=== PATIENT | female | born 1935 | race Caucasian/White ===

== ENCOUNTER 2020-01-02 15:26 | Emergency (ER) | payer MEDICARE ==
[~2020-01-02] VITALS: Ht 157 cm; Wt 48.0 kg
[~2020-01-02 15:26] MED LIST: ASPI-587 PO; HYDR-3714 PO; LISI20TA PO; NFCHLORT25 PO; POTA2TAB15 PO; TRAM50TA2 PO; [UNRECOGNIZED DRUG - CODE] PO
[2020-01-02 15:54] LABS: HEMATOCRIT 33 % (35-52); HEMOGLOBIN 11.4 G/DL (11.5-16.0); MEAN CORPUSCULAR HEMOGLOBIN 33 PG (25-34); MEAN CORPUSCULAR HGB CONC 34 G/DL (32-36); MEAN CORPUSCULAR VOLUME 97 FL (80-99); MEAN PLATELET VOLUME 8.9 FL (7.4-10.4); PLATELET COUNT 209 10^3/uL (130-400); RED CELL DISTRIBUTION WIDTH 13.2 % (10.0-14.5); WHITE BLOOD COUNT 7.7 10^3/uL (4.3-11.0)
[2020-01-02 15:55] LABS: BASOPHILS % (AUTO) 1 % (0-10); EOSINOPHILS % (AUTO) 1 % (0-10); LYMPHOCYTES # (AUTO) 1.7 X 10^3 (1.0-4.0); LYMPHOCYTES % (AUTO) 21 % (12-44); MONOCYTES % (AUTO) 10 % (0-12); NEUTROPHILS # (AUTO) 5.2 X 10^3 (1.8-7.8); NEUTROPHILS % (AUTO) 67 % (42-75)
[2020-01-02 15:56] LABS: BASOPHILS # (AUTO) 0.1 10^3/uL (0.0-0.1); EOSINOPHILS # (AUTO) 0.1 10^3/uL (0.0-0.3); MONOCYTES # (AUTO) 0.8 X 10^3 (0.0-1.0)
[2020-01-02 16:03] VITALS: BP_SYST 110; BP_SYST 112; BP_SYST 114; BP_DIAS 68; BP_DIAS 70; BP_DIAS 72
--- NOTE | 2020-01-02 16:12 | ED General ---
General Chief Complaint: General Problems/Pain Stated Complaint: OFF BALANCE, NO APPETITE Nursing Triage Note: PT STATES SHE HAS NOT HAD MUCH ENERGY FOR THE PAST WEEK OR MORE AND FEELS A LITTLE OFF BALANCE. Nursing Sepsis Screen: No Definite Risk History of Present Illness Date Seen by Provider: January 02, 2020 Time Seen by Provider: 16:07 Initial Comments 84-year-old female complains mainly of fatigue for at least a week poor appetite poor balance she has been sort of running into things she did fall once but denies any particular injury from that episode does not have any focal neurologic deficits visual problems or speech problems denies ever having had a heart attack or stroke or anything similar is not diabetic no ca hx she is really not able to tell me about any significant medical history she has except HTN environmental allergies, and prior shingles Allergies and Home Medications Allergies Coded Allergies: Sulfa (Sulfonamide Antibiotics) (Unverified Allergy, Unknown, 01/03/15) Home Medications Aspirin 81 Mg Tablet.dr, 81 MG PO DAILY, (Reported) Chlorthalidone 25 Mg Tab, 25 MG PO DAILY, (Reported) Hydrocodone Bit/Acetaminophen 1 Tab Tablet, 1 TAB PO Q4H PRN for PAIN Prescribed by: JOE TOWNSEND on 01/03/152039 Lisinopril 20 Mg Tablet, 20 MG PO BID, (Reported) Potassium Gluconate 500 Mg Tablet, 595 MG PO BID, (Reported) Tramadol Hcl 50 Mg Tablet, 50 MG PO Q4H PRN for PAIN, (Reported) Patient Home Medication List Home Medication List Reviewed: Yes Review of Systems Review of Systems Constitutional: dizziness; No fever EENTM: No hearing loss, No blurred vision, No vision loss Respiratory: no symptoms reported; No short of breath Cardiovascular: no symptoms reported; No chest pain, No palpitations, No syncope Gastrointestinal: No abdominal pain, No diarrhea, No vomiting Genitourinary: no symptoms reported Musculoskeletal: no symptoms reported Skin: other (bruising hands and arms) Past Krfuqvq-Vrwxcg-Ulmoln Hx Patient Social History Alcohol Use: Denies Use Recreational Drug Use: No 2nd Hand Smoke Exposure: No Recent Foreign Travel: No Contact w/Someone Who Travel: No Recent Infectious Disease Expo: No Recent Hopitalizations: No Physical Abuse: No Sexual Abuse: No Mistreated: No Fear: No Seasonal Allergies Seasonal Allergies: No Past Medical History Surgeries: Yes Hysterectomy Respiratory: No Cardiac: Yes Hypertension Neurological: No Reproductive Disorders: No Genitourinary: No Gastrointestinal: No Musculoskeletal: No Endocrine: No HEENT: No Cancer: No Psychosocial: No Integumentary: Yes (CHICKEN POX A CHILD) Blood Disorders: No Family Medical History No Pertinent Family Hx Physical Exam Vital Signs Vital Signs - First Documented 01/02/20 15:40 Temp 36.6 Pulse 61 Resp 18 B/P (MAP) 114/66 (82) Pulse Ox 98 O2 Delivery Room Air Capillary Refill : Less Than 3 Seconds Height, Weight, BMI Height: 4'9" Weight: 110lbs. oz. 49.919861rg; 19.00 BMI Method:Stated General Appearance: No Apparent Distress Eyes: Bilateral Eye PERRL, Bilateral Eye EOMI HEENT: Pharynx Normal, Moist Mucous Membranes Neck: Supple Respiratory: Normal Breath Sounds Cardiovascular: Bradycardia, Systolic Murmur Gastrointestinal: Non Tender, Soft Extremity: Pedal Edema (1+ on right) Neurologic/Psychiatric: Alert, Oriented x3, No Motor/Sensory Deficits, Normal Mood/Affect, health and wellness director II-XII Norm as Tested Progress/Results/Core Measures Suspected Sepsis Recent Fever Within 48 Hours: No Infection Criteria Present: None New/Unexplained Altered Menta: No Sepsis Screen: No Definite Risk SIRS Temperature: Pulse: 65 Respiratory Rate: 18 Laboratory Tests 01/02/20 15:46: White Blood Count 7.7 Blood Pressure 110 /68 Mean: 82 Laboratory Tests 01/02/20 15:46: Creatinine 1.49H, Platelet Count 209, Total Bilirubin 0.4 Results/Orders Lab Results Laboratory Tests Test 01/02/20 15:46 01/02/20 15:51 Range/Units White Blood Count 7.7 4.3-11.0 10^3/uL Red Blood Count 3.41 L 4.35-5.85 10^6/uL Hemoglobin 11.4 L 11.5-16.0 G/DL Hematocrit 33 L 35-52 % Mean Corpuscular Volume 97 80-99 FL Mean Corpuscular Hemoglobin 33 25-34 PG Mean Corpuscular Hemoglobin Concent 34 32-36 G/DL Red Cell Distribution Width 13.2 10.0-14.5 % Platelet Count 209 130-400 10^3/uL Mean Platelet Volume 8.9 7.4-10.4 FL Neutrophils (%) (Auto) 67 42-75 % Lymphocytes (%) (Auto) 21 12-44 % Monocytes (%) (Auto) 10 0-12 % Eosinophils (%) (Auto) 1 0-10 % Basophils (%) (Auto) 1 0-10 % Neutrophils # (Auto) 5.2 1.8-7.8 X 10^3 Lymphocytes # (Auto) 1.7 1.0-4.0 X 10^3 Monocytes # (Auto) 0.8 0.0-1.0 X 10^3 Eosinophils # (Auto) 0.1 0.0-0.3 10^3/uL Basophils # (Auto) 0.1 0.0-0.1 10^3/uL Sodium Level 135 135-145 MMOL/L Potassium Level 3.7 3.6-5.0 MMOL/L Chloride Level 99 98-107 MMOL/L Carbon Dioxide Level 24 21-32 MMOL/L Anion Gap 12 5-14 MMOL/L Blood Urea Nitrogen 23 H 7-18 MG/DL Creatinine 1.49 H 0.60-1.30 MG/DL Estimat Glomerular Filtration Rate 33 BUN/Creatinine Ratio 15 Glucose Level 143 H 70-105 MG/DL Calcium Level 9.6 8.5-10.1 MG/DL Corrected Calcium 9.4 8.5-10.1 MG/DL Total Bilirubin 0.4 0.1-1.0 MG/DL Aspartate Amino Transf (AST/SGOT) 25 5-34 U/L Alanine Aminotransferase (ALT/SGPT) 16 0-55 U/L Alkaline Phosphatase 65 40-136 U/L Troponin I < 0.30 <0.30 NG/ML Total Protein 6.9 6.4-8.2 GM/DL Albumin 4.3 3.2-4.5 GM/DL Urine Color DK YELLOW Urine Clarity CLEAR Urine pH 5.0 5-9 Urine Specific [place] >=1.030 1.016-1.022 Urine Protein TRACE H NEGATIVE Urine Glucose (UA) NEGATIVE NEGATIVE Urine Ketones 1+ H NEGATIVE Urine Nitrite NEGATIVE NEGATIVE Urine Bilirubin 2+ H NEGATIVE Urine Urobilinogen 1.0 < = 1.0 MG/DL Urine Leukocyte Esterase NEGATIVE NEGATIVE Urine RBC (Auto) NEGATIVE NEGATIVE Urine RBC RARE /HPF Urine WBC 2-5 /HPF Urine Squamous Epithelial Cells 0-2 /HPF Urine Crystals NONE /LPF Urine Bacteria TRACE /HPF Urine Casts PRESENT /LPF Urine Hyaline Casts 2-5 H /LPF Urine Mucus NONE /LPF Urine Culture Indicated NO My Orders Orders - TINO SAGE MD Iv/Invasive Line Insertion .IV start (01/02/20 15:45) Cbc With Automated Diff (01/02/20 15:45) Comprehensive Metabolic Panel (01/02/20 15:45) Troponin I Fs (01/02/20 15:45) Urinalysis (01/02/20 15:45) Ekg Tracing (01/02/20 15:45) Dock Associate (01/02/20 15:45) Ct Head Wo (01/02/20 15:45) Orthostatic Vital Signs (Adult (01/02/20 15:45) Chest Pa/Lat (2 View) (01/02/20 16:16) Thyroid Stimulating Hormone (01/02/20 16:16) Vital Signs/I&O 01/02/20 01/02/20 15:40 16:03 Temp 36.6 Pulse 61 62 64 65 Resp 18 B/P (MAP) 114/66 (82) 112/72 (85) 114/70 (85) 110/68 (82) Pulse Ox 98 O2 Delivery Room Air Capillary Refill : Less Than 3 Seconds Blood Pressure Mean: 82 Progress Note : Progress Note Hemoglobin 11.4 white blood count 7700 urine is greater than 1.030 specific gravity and 1+ ketones CT head shows no acute changes some small vessel disease appreciated Chest x-ray shows mild cardiomegaly no CHF no acute changes orthostats negative ECG Initial ECG Impression Date: January 02, 2020 Comment EKG shows a sinus bradycardia at a rate of [address] changes manager cardiac cath has shown her rate to usually be in the mid 50s and it has been sinus throughout Does however dip into the 40s frequently does not seem to correlate with any symptoms on her part Departure Impression Primary Impression: Fatigue Qualified Codes: R53.83 - Other fatigue Additional Impression: Bradycardia Disposition: 01 HOME, SELF-CARE Condition: Unchanged Departure-Patient Inst. Decision time for Depature: 17:05 Referrals: MOUNA URENA (PCP/Family) Primary Care Physician Patient Instructions: Bradycardia (DC), Fatigue (DC) Add. Discharge Instructions: Recommend that you follow up with your primary provider about potentially wearing a heart monitor for a longer period of time to check on the slow heart rate otherwise your evaluation didn't show anything concerning also a thyroid blood test is pending TINO SAGE MD January 02, 2020 16:12
[2020-01-02 16:22] LABS: CLARITY,URINE CLEAR; COLOR,URINE DK YELLOW; GLUCOSE, URINE (UA) NEGATIVE (NEGATIVE); KETONES,URINE 1+ (NEGATIVE); NITRITE,URINE NEGATIVE (NEGATIVE); PROTEIN,URINE TRACE (NEGATIVE)
--- NOTE | 2020-01-02 16:22 | Diagnostic Imaging Report ---
INDICATION: Imbalance issues. TECHNIQUE: Routine non contrast-enhanced axial images were obtained from the skull base to the vertex. Auto Exposure Controls were utilized during the CT exam to meet ALARA standards for radiation dose reduction COMPARISON: None. FINDINGS: The ventricles and cortical sulci are diffusely prominent, compatible with age-related volume loss. There are confluent areas of abnormal, low attenuation in the periventricular white matter. This is consistent with small vessel ischemic changes; age-indeterminate. There is no prior study available for comparison. There is no midline shift or mass-effect. No acute intra-axial hemorrhage is seen. There are no abnormal areas of increased or decreased density to suggest acute hemorrhage or edema. No extra-axial masses or collections are present. The bony calvarium is intact. The visualized paranasal sinuses are unremarkable. The mastoid air cells are clear. IMPRESSION: 1. No acute intracranial abnormality. No CT evidence of mass, acute infarct or intracranial hemorrhage. 2. Small vessel ischemic changes in the periventricular and subcortical white matter; likely chronic. Dictated by: Dictated on workstation # [id number]
[2020-01-02 16:23] LABS: BACTERIA,URINE TRACE /HPF; BILIRUBIN,URINE 2+ (NEGATIVE); LEUKOCYTE ESTERASE ,URINE NEGATIVE (NEGATIVE); RBC,URINE RARE /HPF; SQUAMOUS EPITHELIAL CELL,UR 0-2 /HPF
--- NOTE | 2020-01-02 16:39 | Diagnostic Imaging Report ---
EXAMINATION: PA and lateral chest. INDICATION: Balance abnormalities. FINDINGS: There is enlargement of the cardiac silhouette. The central pulmonary vascularity appears appropriate without evidence of current failure or edema. There is no focal alveolar infiltrate or consolidation. There is no evidence of significant pleural effusion. There is no pneumothorax. Advanced degenerative endplate changes are present within the thoracic spine. IMPRESSION: 1. Enlarged cardiac silhouette without current evidence of failure or edema. No focal infiltrate or effusion evident. Dictated by: Dictated on workstation # [id number]
[2020-01-02 16:50] LABS: POTASSIUM 3.7 MMOL/L (3.6-5.0); SODIUM 135 MMOL/L (135-145)
[2020-01-02 16:51] LABS: ALANINE AMINOTRANSFERASE 16 U/L (0-55); ALKALINE PHOSPHATASE 65 U/L (40-136); BILIRUBIN,TOTAL 0.4 MG/DL (0.1-1.0); BUN/CREATININE RATIO 15; CALCIUM 9.6 MG/DL (8.5-10.1); CARBON DIOXIDE 24 MMOL/L (21-32); CHLORIDE 99 MMOL/L (98-107); CREATININE SERUM 1.49 MG/DL (0.60-1.30); GFR ESTIMATED 33; GLUCOSE 143 MG/DL (70-105)
[2020-01-02 16:52] LABS: ALBUMIN 4.3 GM/DL (3.2-4.5); TOTAL PROTEIN 6.9 GM/DL (6.4-8.2)
[2020-01-02 17:19] VITALS: BP 112/67
--- OUTSIDE RECORDS SUMMARY | 2020-01-02 17:23 | XMS REPORT | Clinical Summary ---
Author Author [facility] Organization [facility] Address Unknown Phone Unavailable Care Team Providers Care Tester Wafer Substrate Name Role Phone Xiomy Alarcon MD PCP Source Comments Some departments are not documenting in the electronic medical record. If you d o not see the information that you expected, contact Release of Information in formerly [facility] [employer] Information Management department at [phone] for further assistan ce in locating additional records.[facility] Allergies No Known Allergies Medications Not on file Active Problems Not on file Social History Date Tobacco Use Types Packs/Day Years Used Never Smoker Smokeless Tobacco: Never Used Drinks/Week oz/Week Comments Alcohol Use No Sex Assigned at Date Recorded Not on file Industry Job Start Date Occupation Not on file Not on file Not on file Travel End Travel History Travel Start No recent travel history available. Last Filed Vital Signs Reading Time Taken Comments Vital Sign 103/55 06/17/2017 11:16 AM CDT Blood Pressure - - Pulse 36.8 C (98.3 F) 06/17/2017 11:16 AM CDT Temperature - - Respiratory Rate 97% 06/17/2017 11:16 AM CDT Oxygen Saturation - - Inhaled Oxygen Concentration - - Weight - - Height - - Body Mass Index Plan of Treatment Health Maintenance Due Date Last Done Comments MEDICARE ANNUAL WELLNESS 1935 VISIT DTAP/TDAP VACCINES (1 - 01/04/1954 Tdap) PHYSICAL (COMPREHENSIVE) 01/04/1953 EXAM SHINGLES RECOMBINANT 01/04/1986 VACCINE (1 of 2) PNEUMONIA (PPSV23) 01/04/2001 VACCINE (1 of 1 - PPSV23) INFLUENZA VACCINE 05/31/2020 Results Not on filefrom Last 3 Months Insurance Type Payer Benefit Subscriber ID Effective Phone Address Plan / Dates Group Medicare MEDICARE MEDICARE xxxxxxxxxx 2000-P PART A AND resent B Medicare BCBS JULIA BCBS xxxxxxxxxxxx 2016-P SUPPLEMENT resent [id number] Advance Directives Patient Insurance Loss Assessor Explanation Type Date Recorded Advance 06/17/2017 10:46 AM Directive/DPOA
--- OUTSIDE RECORDS SUMMARY | 2020-01-02 17:23 | XMS REPORT ---
Author Author [place] [employer] medical case worker Drive [facility] [employer]. 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 [address] disease (2 to pollen of [facility] sources.) Translations: [place] ([address]73) [ Seasonal allergic rhinitis due to pollen, Seasonal allergic rhinitis due to pollen] 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 [address] and connective Translations: of [facility] tissue [ Autoimmune [place] (21157) disorders (2 disorder, sources.) Autoimmune disorder] Heart valve Cardiac Episodic Active MOUNA Community disorders (1 murmur, [address] source.) unspecified of [facility] Translations: [place] (13675) [ - Cardiac murmur R01.1] Chronic kidney Chronic kidney Chronic Active MOUNA Co mmunity disease (2 disease stage [address] sources.) 2 of [facility] Translations: [place] (12719) [ CKD (chronic kidney disease) stage 2, GFR 60-89 ml/min, CKD (chronic kidney disease) stage 2, GFR 60-89 ml/min] Residual Chronic pain Chronic Active MOUNA Community codes; Translations: [address] unclassified [ Other of [place] (1 source.) chronic pain] [place] (82898) Other diseases Disorder of Episodic Active MOUNA Commu nity of kidney and kidney and [address] ureters (2 ureter, of [place] sources.) unspecified [place] (16048) Translations: [ - Renal insufficiency N28.9] Genitourinary Dysuria Episodic Active MOUNA Community symptoms and Translations: [address] ill-defined [ - Dysuria of [facility] conditions (1 R30.0] [place] () source.) Essential Essential Chronic Active MOUNA Community hypertension (primary) [address] (5 sources.) hypertension of [place] Translations: [place] () [ - Hypertension I10, Essential hypertension, Essential hypertension, Hypertension, Hypertension, Essential hypertension] Other Increased Chronic Active MOUNA Community gastrointestin liver function [address] r al disorders Translations: of [facility] (2 sources.) [ LFT [place] () elevation, LFT elevation] Other nervous Other chronic Chronic Active MOUNA Comm unity system pain [address] disorders (1 Translations: of [facility] source.) [ - Other [place] () chronic pain G89.29] Other Other Episodic Active MOUNA Community screening for specified [address] suspected abnormal of [facility] conditions findings of [place] () (not mental blood disorders or chemistry infectious Translations: disease) (1 [ - Blood source.) creatinine increased compared with prior measurement R79.89] Immunizations Other Episodic Active [facility] and screening specified [address] for infectious abnormal of [facility] disease (3 immunological [place] () sources.) findings in serum Translations: [ - Positive ISAIAH (antinuclear antibody) R76.8, - Rheumatoid factor positive R76.8] Residual [facility] codes; specified [address] unclassified health status of [facility] (1 source.) Translations: [place] () [ - HBcAb negative Z78.9] Other Pain in right Episodic Active MOUNA Communit y non-traumatic knee [address] joint Translations: of [facility] disorders (1 [ - Pain in [place] () source.) right knee M25.561] Administrative Persons Episodic Active MOUNA Communit y /social encountering [address] admission (1 health of [facility] source.) services in [place] () other specified circumstances Translations: [ - Encounter to establish care Z76.89] Other upper Postnasal drip Episodic Active MOUNA Commu nity respiratory Translations: [address] infections (1 [ - Post-nasal of [facility] source.) drainage [place] () R09.82] Other diseases Renal no information Active MOUNA Com munity of kidney and insufficiency [address] ureters (2 Translations: of [facility] sources.) [ Renal [place] () insufficiency, Renal insufficiency] Urinary tract Urinary tract Episodic Active MOUNA Comm unity infections (1 infection, [address] source.) site not of [facility] specified [place] () Translations: [ - UTI (lower urinary tract infection) N39.0] Past or Other Problems Problem Normalized Date Last Normalized Normalized Provider Fa cility Classification Problem(s) Recorded Problem Problem Sta tus Duration Other skin Actinic Episodic Completed MOUNA Community disorders ([address] sources.) Translations: of [facility] [ AK (actinic [place] () keratosis), [place] (actinic keratosis)] Other Arthralgia of Episodic Completed MOUNA Communit y non-traumatic the lower leg [address] joint Translations: of [facility] disorders (2 [ Recurrent [place] () sources.) pain of right knee, Recurrent pain of right knee] Fracture of Closed Colles' Episodic Completed MOUNA Commu nity upper limb ([address] sources.) Translations: of [facility] [ Closed [place] () Colles fracture, Closed Colles fracture] Diabetes Impaired Episodic Completed MOUNA Community mellitus glucose [address] without tolerance test of [place] complication Translations: [place] () (2 sources.) [ Glucose intolerance (impaired glucose tolerance), Glucose intolerance (impaired glucose tolerance)] Other Joint pain Episodic Completed MOUNA Community non-traumatic Translations: [address] joint [ Arthralgia of [place] disorders (1 of multiple [place] (71949) source.) sites, bilateral] Other Multiple joint Episodic Completed MOUNA Communi ty non-traumatic pain [address] joint Translations: of [place] disorders (1 [ Arthralgia [place] (56728) source.) of multiple sites, bilateral] Other Personal Episodic Completed MOUNA Community infections; history of [address] including other of [facility] parasitic (2 infectious and [place] (54671) sources.) parasitic diseases Translations: [ History of shingles, History of shingles] Other skin Senile Episodic Completed [facility] disorders (2 [address] sources.) Translations: of [facility] [ SK [place] (02228) (seborrheic keratosis), SK (seborrheic keratosis)] Other 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 No Known procedures No Known procedures Immunizations Normalized Immunization Date Notes Care Provider Facili ty Immunization influenza, seasonal, 06-21-2019 no information no name [facility] injectable [facility] [place] ([id number]) pneumococcal 06-21-2019 no information no name [facility] polysaccharide [facility] vaccine, 23 valent - [place] ([id number]) Results Test Name Value Interpretation Reference Range Date Time Fa cility (Normalized) (Normalized) (Medline Reference) not yet categorized on 2019-06-21 A:C (IN HOUSE) 07/30/2019~clear (no code) [facility] Hea lth ~yellow~[address] [facility] mg/L~300mg/dL~<3 [facility] 0mg/g (71019) Lot # [id number] (no code) [facility] Healt h [facility] (22462) laboratory on 2019-06-21 Albumin 4.4 g/dL (N) 3.4 - 5.4 g/dL [facility] [Mass/Vol] [facility] (77926) Albumin 4.4 g/dL (N) 3.4 - 5.4 g/dL [facility] [Mass/Vol] [facility] (75267) Albumin/Globulin 1.8 {ratio} (N) 1 - 2.5 {ratio} [facility] [Mass ratio] [facility] (44725) Albumin/Globulin 1.8 {ratio} (N) 1 - 2.5 {ratio} Comm [facility] [Mass ratio] [facility] (66974) ALP [Catalytic 71 U/L (N) 44 - 147 U/L [facility] activity/Vol] [facility] (95705) ALP [Catalytic 71 U/L (N) 44 - 147 U/L [facility] Health activity/Vol] [facility] (49956) ALT [Catalytic 13 U/L (N) 4 - 40 U/L Community H ealth activity/Vol] [facility] (45517) ALT [Catalytic 13 U/L (N) 4 - 40 U/L Community H ealth activity/Vol] [facility] (12645) AST [Catalytic 22 U/L (N) 10 - 34 U/L [facility] Health activity/Vol] [facility] (25050) AST [Catalytic 22 U/L (N) 10 - 34 U/L [facility] Health activity/Vol] [facility] () Basophils (Bld) 0.059 10*3/uL (N) 0 - 0.3 10*3/uL [facility] [#/Vol] [facility] (70544) Basophils (Bld) 0.059 10*3/uL (N) 0 - 0.3 10*3/uL [facility] [#/Vol] [facility] (89379) Basophils/100 1.0 % (N) 0.5 - 1 % Community He alth WBC (Bld) [facility] (26133) Basophils/100 1.0 % (N) 0.5 - 1 % Community He alth WBC (Bld) [facility] (52440) Bilirubin 0.5 mg/dL (N) 0.1 - 1.2 mg/dL [facility] [Mass/Vol] [facility] (30495) Bilirubin 0.5 mg/dL (N) 0.1 - 1.2 mg/dL [facility] [Mass/Vol] [facility] (82783) Calcidiol 0 ng/mL (no code) 20 - 50 ng/mL [facility] H ealth [Mass/Vol] [facility] (40414) Calcidiol 57 ng/mL (N) 20 - 50 ng/mL [facility] ealt [Mass/Vol] [facility] (31213) Calcium 9.6 mg/dL (N) 8.5 - 10.2 mg/dL [facility] [Mass/Vol] [facility] (73053) Calcium 9.6 mg/dL (N) 8.5 - 10.2 mg/dL [facility] [Mass/Vol] [facility] (54254) Chloride 103 mmol/L (N) 95 - 106 mmol/L [facility] [Moles/Vol] [facility] (48471) Chloride 103 mmol/L (N) 95 - 106 mmol/L [facility] [Moles/Vol] [facility] (58647) CO2 [Moles/Vol] 25 mmol/L (N) 23 - 29 mmol/L [facility] (46879) CO2 [Moles/Vol] 25 mmol/L (N) 23 - 29 mmol/L [facility] (15123) Creatinine 1.10 mg/dL (H) [facility] [Mass[facility]] [facility] (16292) Creatinine 1.10 mg/dL (H) [facility] [Mass/Vol] [facility] (05196) Eosinophils 0.112 10*3/uL (N) 0.05 - 0.5 Community He alth (Bld) [#/Vol] 10*3/uL [facility] (49442) Eosinophils 0.112 10*3/uL (N) 0.05 - 0.5 Community He alth (Bld) [#/Vol] 10*3/uL [facility] (70696) Eosinophils/100 1.9 % (N) 1 - 4 % [facility] Health WBC (Bld) [facility] (42741) Eosinophils/100 1.9 % (N) 1 - 4 % [facility] WBC (Bld) [facility] (26465) Erythrocyte 12.1 % (N) 11.6 - 14.6 % [facility] H ealth distribution [facility] (RBC) [facility] [Ratio] (96875) Erythrocyte 12.1 % (N) 11.6 - 14.6 % [facility] width (RBC) [facility] [Ratio] (15414) Free T4 1.2 ng/dL (N) 0.9 - 2.2 ng/dL [facility] [Mass/Vol] [facility] (94078) GFR/1.73 sq M 54 (L) 90 - 120 Community He alth predicted among mL/min/{1.73_m2} mL/min/{1.73_m2} [facility] [place] MDRD [facility] (S/P/Bld) [Vol (92894) rate/Area] GFR/1.73 sq M 54 (L) 90 - 120 Community He alth predicted among mL/min/{1.73_m2} mL/min/{1.73_m2} [facility] [place] MDRD [facility] (S/P/Bld) [Vol (41295) rate/Area] GFR/1.73 sq 46 (L) 90 - 120 Community Heal th M.predicted MDRD mL/min/{1.73_m2} mL/min/{1.73_m2} [facility] (S/P/Bld) [Vol [facility] rate/Area] (29980) GFR/1.73 sq 46 (L) 90 - 120 [facility] th M.predicted MDRD mL/min/{1.73_m2} mL/min/{1.73_m2} [facility] (S/P/Bld) [Vol [facility] rate/Area] (73372) Globulin (S) 2.5 g/dL (N) 2 - 3.5 g/dL Community H ealt [Mass/Vol] [facility] (71361) Globulin (S) 2.5 g/dL (N) 2 - 3.5 g/dL [facility] ealt [Mass/Vol] [facility] (96103) Glucose 96 mg/dL (N) 60 - 125 mg/dL [facility] [Mass/Vol] [facility] (14396) Glucose 96 mg/dL (N) 60 - 125 mg/dL [facility] [Mass/Vol] [facility] (59576) HbA1c (Bld) 5.7 (H) [facility] [Mass fraction] [facility] (64417) HbA1c (Bld) 5.7 (H) [facility] h [Mass fraction] [facility] (54742) Hematocrit (Bld) 35.9 % (N) 36.1 - 50.3 % [facility] [Volume [facility]] [facility] (63629) Hematocrit (Bld) 35.9 % (N) 36.1 - 50.3 % [facility] [Volume Center of [facility] (46727) Hemoglobin (Bld) 12.2 g/dL (N) 12.1 - 17.2 g/dL [facility] [Mass/Vol] [facility] (36382) Hemoglobin (Bld) 12.2 g/dL (N) 12.1 - 17.2 g/dL [facility] [Mass/Vol] [facility] (92092) Lymphocytes 1.906 10*3/uL (N) 0.9 - 2.9 [facility] He alth (Bld) [#/Vol] 10*3/uL [facility] (28781) Lymphocytes 1.906 10*3/uL (N) 0.9 - 2.9 [facility] He alth (Bld) [#/Vol] 10*3/uL [facility] (44192) Lymphocytes/100 32.3 % (N) 20 - 40 % [facility] WBC (Bld) [facility] (84731) Lymphocytes/100 32.3 % (N) 20 - 40 % [facility] WBC (Bld) [facility] (75300) MCH (RBC) 33.3 pg (H) 27 - 31 pg [facility] th [Entitic mass] [facility] (20932) MCH (RBC) 33.3 pg (H) 27 - 31 pg [facility] th [Entitic mass] [facility] (80642) MCHC (RBC) 34.0 g/dL (N) 32 - 36 g/dL Community He alth [Mass/Vol] [facility] (61825) MCHC (RBC) 34.0 g/dL (N) 32 - 36 g/dL [facility] He alth [Mass/Vol] [facility] (66370) MCV (RBC) 98.1 fL (N) 80 - 100 fL [facility] Hea lt [Entitic vol] [facility] (88566) MCV (RBC) 98.1 fL (N) 80 - 100 fL [facility] Hea lth [Entitic vol] [facility] (24342) Monocytes (Bld) 0.531 10*3/uL (N) 0.3 - 0.9 Communit y Health [#/Vol] 10*3/uL [facility] (80991) Monocytes (Bld) 0.531 10*3/uL (N) 0.3 - 0.9 Communit Health [#/Vol] 10*3/uL [facility] (45517) Monocytes/100 9.0 % (N) 2 - 8 % [facility] He alth WBC (Bld) [facility] (29530) Monocytes/100 9.0 % (N) 2 - 8 % [facility] alth WBC (Bld) [facility] (22384) Neutrophils 3.292 10*3/uL (N) 1.7 - 7 10*3/uL [facility] Health (Bld) [#/Vol] [facility] (85305) Neutrophils 3.292 10*3/uL (N) 1.7 - 7 10*3/uL [facility] Health (Bld) [#/Vol] [facility] (91245) Neutrophils/100 55.8 % (N) 40 - 60 % [facility] Health WBC (Bld) [facility] (63489) Neutrophils/100 55.8 % (N) 40 - 60 % [facility] WBC (Bld) [facility] (75998) Platelet mean 9.2 fL (N) 7.2 - 11.7 fL [facility] Health volume (Bld) [facility] [Entitic vol] [facility] (57668) Platelet mean 9.2 fL (N) 7.2 - 11.7 fL [facility] volume (Bld) [facility] [Entitic vol] [facility] (75630) Platelets (Bld) 273 10*3/uL (N) 150 - 450 [facility] [#/Vol] 10*3/uL [facility] (99312) Platelets (Bld) 273 10*3/uL (N) 150 - 450 [facility] [#/Vol] 10*3/uL [facility] (52935) Potassium 3.8 mmol/L (N) 3.7 - 5.2 mmol/L [facility] [Moles/Vol] [facility] (92619) Potassium 3.8 mmol/L (N) 3.7 - 5.2 mmol/L [facility] [Moles/Vol] [facility] (42222) Protein 6.9 g/dL (N) 6.4 - 8.3 g/dL [facility] [Mass/Vol] [facility] (04420) Protein 6.9 g/dL (N) 6.4 - 8.3 g/dL [facility] [Mass/Vol] [facility] (28871) RBC (Bld) 3.66 10*6/uL (L) 4.2 - 6.1 [facility] Hea lth [#/Vol] 10*6/uL [facility] (72158) RBC (Bld) 3.66 10*6/uL (L) 4.2 - 6.1 [facility] Hea lth [#/Vol] 10*6/uL [facility] (49696) Sodium 139 mmol/L (N) 135 - 145 mmol/L [facility] [Moles/Vol] [facility] (33308) Sodium 139 mmol/L (N) 135 - 145 mmol/L [facility] [Moles/Vol] [facility] (30592) TSH Qn 1.85 m[IU]/L (N) 0.4 - 4 m[IU]/L [facility] (79745) Urea nitrogen 15 mg/dL (N) 7 - 20 mg/dL [facility] [Mass/Vol] [facility] (74692) Urea nitrogen 15 mg/dL (N) 7 - 20 mg/dL [facility] [Mass/Vol] [facility] (55359) Urea 14 mg/mg (N) 6 - 22 mg/mg Community He alth nitrogen/Creatin [facility] [Mass ratio] [facility] (93371) Urea 14 mg/mg (N) 6 - 22 mg/mg Community [facility] alth nitrogen/Creatin [facility] [Mass ratio] [facility] () WBC (Bld) 5.9 10*3/uL (N) 3.5 - 10.5 Community Heal th [#/Vol] 10*3/uL [facility] (00017) WBC (Bld) 5.9 10*3/uL (N) 3.5 - 10.5 [facility] [#/Vol] 10*3/uL [facility] () not yet categorized on 2019-03-05 BLO Moderate (no code) Community Healt h [facility] () KET 05/2019~slightly (no code) [facility] cloudy~dark [facility] yellow~yes~negat [facility] kev~negative~Tra (03423) ce OLIVER Negative (no code) [facility] () Lot # [id number] (no code) [facility] (80620) SG 1.020 (no code) [facility] () URO 0.2 (no code) [facility] Healt [facility] () laboratory on 2019-03-05 Bacteria SEE NOTE (no code) [facility] identified Cx [facility] Nom (U) [facility] () pH (Bld) 6.5 [pH] (no code) 7.38 - 7.42 [pH] Communit [facility] () Protein (U) 100 mg/dL (no code) 0 - 20 mg/dL Community He alth [Mass/Vol] [facility] () other on 2018-12-14 Albumin/Globulin 1.9 (N) Community [facility] lth [Mass ratio] [facility] (88898) Cholesterol in 133 (H) [facility] LDL [Mass/Vol] [facility] (31939) Cholesterol non 148 (H) [facility] HDL [Mass/Vol] [facility] (05506) Cholesterol.tota 2.7 (N) [facility] lt l/Cholesterol in [facility] HDL [Mass ratio] [facility] (15150) Erythrocyte 12.4 % (N) 11.6 - 14.6 % Community ealth distribution [facility] width (RBC) [facility] [Ratio] (80577) GFR/1.73 sq 42 (L) 90 - 120 [facility] M.predicted MDRD mL/min/{1.73_m2} mL/min/{1.73_m2} [facility] (S/P/Bld) [Vol [facility] rate/Area] (51495) Globulin (S) 2.2 (N) [facility] h [Mass/Vol] [facility] (16068) MCHC (RBC) 34.0 g/dL (N) 32 - 36 g/dL [facility] [Mass/Vol] [facility] (76019) Platelet mean 9.4 fL (N) 7.2 - 11.7 fL [facility] volume (Bld) [facility] [Entitic vol] [facility] (14177) metabolic panel on 2018-12-14 Albumin 4.2 g/dL (N) 3.4 - 5.4 g/dL [facility] [Mass/Vol] [facility] (08684) ALP [Catalytic 80 U/L (N) 44 - 147 U/L [facility] activity/Vol] [facility] (47072) ALT [Catalytic 13 U/L (N) 4 - 40 U/L [facility] ealt activity/Vol] [facility] (13098) AST [Catalytic 22 U/L (N) 10 - 34 U/L [facility] activity/Vol] [facility] (48479) Bilirubin 0.7 mg/dL (N) 0.1 - 1.2 mg/dL [facility] [Mass/Vol] [facility] (52860) Calcium 9.3 mg/dL (N) 8.5 - 10.2 mg/dL [facility] [Mass/Vol] [facility] (97303) Chloride 108 mmol/L (N) 95 - 106 mmol/L [facility] [Moles/Vol] [facility] (56864) CO2 [Moles/Vol] 26 mmol/L (N) 23 - 29 mmol/L [facility] (04807) Creatinine 1.20 mg/dL (H) [facility] Healt h [Mass/Vol] [facility] (40280) GFR/1.73 sq M 49 (L) 90 - 120 Community He alth predicted among mL/min/{1.73_m2} mL/min/{1.73_m2} [facility] [place] [facility] MDRD [facility] (S/P/Bld) [Vol (27117) rate/Area] Glucose 112 mg/dL (H) 60 - 125 mg/dL [facility] [Mass/Vol] [facility] (14167) Potassium 3.9 mmol/L (N) 3.7 - 5.2 mmol/L [facility] [Moles/Vol] [facility] (18116) Protein 6.4 g/dL (N) 6.4 - 8.3 g/dL [facility] [Mass/Vol] [facility] (91509) Sodium 142 mmol/L (N) 135 - 145 mmol/L [facility] [Moles/Vol] [facility] (50246) Urea nitrogen 18 mg/dL (N) 7 - 20 mg/dL [facility] [Mass/Vol] [facility] (35314) Urea 15 mg/mg (N) 6 - 22 mg/mg Community He alth nitrogen/Creatin [facility] [Mass ratio] [facility] (62972) hematology on 2018-12-14 Basophils (Bld) 0.059 10*3/uL (N) 0 - 0.3 10*3/uL [facility] Health [#/Vol] [facility] (32891) Basophils/100 1.1 % (N) 0.5 - 1 % Community He alth WBC (Bld) [facility] (64706) Eosinophils 0.162 10*3/uL (N) 0.05 - 0.5 [facility] He alth (Bld) [#/Vol] 10*3/uL [facility] (75075) Eosinophils/100 3.0 % (N) 1 - 4 % [facility] WBC (Bld) [facility] (01634) Hematocrit (Bld) 34.7 % (L) 36.1 - 50.3 % [facility] (32429) Hemoglobin (Bld) 11.8 g/dL (N) 12.1 - 17.2 g/dL [facility] [Mass/Vol] [facility] (35080) Lymphocytes 2.03 10*3/uL (N) 0.9 - 2.9 [facility] [#/Vol] 10*3/uL [facility] ([id number]) Lymphocytes/100 37.6 % (N) 20 - 40 % [facility] WBC (Bld) [facility] (64887) MCH (RBC) 33.0 pg (N) 27 - 31 pg [facility] Heal th [Entitic mass] [facility] (32995) MCV (RBC) 96.9 fL (N) 80 - 100 fL [facility] [Entitic vol] [facility] (22383) Monocytes (Bld) 0.443 10*3/uL (N) 0.3 - 0.9 [facility] Health [#/Vol] 10*3/uL [facility] (32853) Monocytes/100 8.2 % (N) 2 - 8 % [facility] WBC (Bld) [facility] (18932) Neutrophils 2.705 10*3/uL (N) 1.7 - 7 10*3/uL [facility] Health (Bld) [#/Vol] [facility] (73176) Neutrophils/100 50.1 % (N) 40 - 60 % [facility] WBC (Bld) [facility] (85538) Platelets (Bld) 258 10*3/uL (N) 150 - 450 [facility] [#/Vol] 10*3/uL [facility] (76758) RBC (Bld) 3.58 10*6/uL (L) 4.2 - 6.1 [facility]th [#/Vol] 10*6/uL [facility] (36521) WBC (Bld) 5.4 10*3/uL (N) 3.5 - 10.5 [facility] th [#/Vol] 10*3/uL [facility] (95430) cardiac on 2018-12-14 Cholesterol 237 mg/dL (H) 180 - 200 mg/dL [facility] [Mass/Vol] [facility] (82965) Cholesterol in 89 mg/dL (N) [facility] h HDL [Mass/Vol] [facility] (48150) Triglyceride 59 mg/dL (N) 0 - 150 mg/dL [facility] [Mass/Vol] [facility] (43514) Vital Signs The data below is from unstructured sources Vital Response Date/Time Temperature (Fahrenheit) 97.7 degree s F (97.6 - 99.5) Temperature (Calculated Celsius) 36. 75225 degrees C (36.4 - 37.5) Pulse Rate (adult) 51 bpm (60 - 90) Respiratory Rate 20 bpm (12 - 24) O2 Sat by Pulse Oximetry 97 % (88 - 100) Blood Pressure 159/79 mm Hg Pain Pain Intensity 4 Height (Feet) 4 feet Height (Inches) 9 inches Height (Calculated Centimeters) 144. 342951 cm Weight (Pounds) 110 pounds Weight (Calculated Kilograms) 49.895 161 kilograms Calculated BMI 23.80 Interventions No Information Plan of Treatment Normalized Care Care Detail Care Activity Date Care Provider F acility Activity [facility] 06-21-[address] [facility] [address] [facility] ([id number]) Goals No Information Social History No Information Functional Status The data below is from unstructured sourcesNo functional status results. Mental Status No Information Encounters Encounter Normalized Encounter Encounter Diagnosis Care Provi mariam Organization Date Type 03-05-2019 [facility] Urinary tract TRANG SORENSON (no [facility] infection, site not phone) IN CARE (n o phone) specified 08-17-2018 [facility] no information Doctor Migrati on ([facility] phone) (no phone) 08-14-2018 [facility] no information Doctor Migrati on (no [facility] phone) (no phone) 07-15-2018 [facility] no information Doctor Migrati on (no [facility] phone) (no phone) 07-10-2018 [facility] no information Doctor Migrati on (no [facility] phone) (no phone) 07-08-2018 [facility] no information Doctor Migrati on (no [facility] phone) (no phone) 06-14-2018 [facility] no information Doctor Migrati on (no [facility] phone) (no phone) 06-10-2018 [facility] no information Doctor Migrati on (no [facility] phone) (no phone) 12-15-2015 [facility] no information Doctor Migrati on (no [facility] phone) (no phone) 03-21-2019 [facility] Fifteen Reasons no information MOUNA URENA (n o [facility] [place] (no phone) phone) 12-20-2018 [facility] ANA PAULA Essential (primary) MOUNA JAMES RN (no [facility] [place] (no hypertension phone) phone) 09-27-2018 [facility] Persons encountering MOUNA RAO (no [facility] [place] (no health services in phone) phone) other specified circumstances 12-14-2018 Consultation for Essential (primary) MOUNA XIE N (no [facility] laboratory medicine hypertension phone) (no phone) 08-05-2019 Patient encounter no information no name no or ganization name procedure 06-21-2019 Patient encounter no information no name no or ganization name procedure 03-21-2019 Patient encounter no information no name no or ganization name procedure 03-05-2019 Patient encounter no information no name no or ganization name procedure 12-20-2018 Patient encounter no information no name no or ganization name procedure 12-14-2018 Patient encounter no information no name no or ganization name procedure 11-24-2018 Patient encounter no information no name no or ganization name procedure 09-27-2018 Patient encounter no information no name no or ganization name procedure 04-07-2019 Telephone encounter no information MOUNA ROMEL (no [facility] [place] (no phone) phone) 03-30-2019 Telephone encounter no information MOUNA ROMEL (no [facility] [place] (no phone) phone) 11-20-2018 Telephone encounter no information MOUNA ROMEL (no [facility] [place] (no phone) phone) 10-05-2018 Telephone encounter no information MOUNA ROMEL (no [facility] [place] (no phone) phone) 10-04-2018 Telephone encounter no information MOUNA ROMEL (no [facility] [place] (no phone) phone) 09-14-2018 Telephone encounter no information MOUNA ROMEL (no [facility] [place] (no phone) phone) 08-29-2018 Telephone encounter no information Doctor Migration (no [facility] phone) (no phone) Medical Equipment No Information Payers No Information Advance Directives Directive Response Recor ded Date/Time Advance Directives No 7:35pm Resuscitation Status Full Code 01/03/15 7:35pm Discharge Instructions No hospital discharge instructions. Additional Source Comments This clinical document has been generated using [employer] software that has been certified by the Office of the National Coordinator for Health Information Technology (ONC 15.99.04.3023.Diam.31.00.0.228569) and the National Committee for Executive Relations Specialist (NCQA, as an eMeasure certified technology). FOR RECORDS PERTAINING TO PATIENTS WHO ARE OR HAVE BEEN ENROLLED IN A CHEMICAL D EPENDENCY/SUBSTANCE ABUSE PROGRAM, SOME INFORMATION MAY BE OMITTED. This clinica l summary was aggregated from multiple sources. Caution should be exercised in using it in the provision of clinical care. This summary normalizes information from multiple sources, and as a consequence, information in this document may ma terially change the coding, format and clinical context of patient data. In ibeth tion, data may be omitted in some cases. CLINICAL DECISIONS SHOULD BE BASED ON T HE PRIMARY CLINICAL RECORDS. [employer] provides no warranty or guara ntee of the accuracy or completeness of information in this document.The followi ng information is based on time limited clinical information UNRECOGNIZED CONTENT PROVIDED BELOW FOR UNRECOGNIZED SECTION REASON FOR VISIT medication refill UNRECOGNIZED CONTENT PROVIDED BELOW FOR UNRECOGNIZED SECTION MEDICAL (GENERAL) HISTORY Type Description Date Medical History Glucose Intolerance Medical History Squamous Cell Carcinoma Medical History Hypertension Medical History Renal Insufficiency Medical History Hx Shingles Medical History LFT Elevation Medical History Chronic Kidney DIsease Medical History Autoimmune Disorder Surgical History hysterectomy Hospitalization History hysterectomy
--- OUTSIDE RECORDS SUMMARY | 2020-01-02 17:24 | XMS REPORT | Continuity of Care Document ---
Author Organization Unknown Address Unknown Phone Unavailable Allergies Active Description Code Type Severity Reaction Onset Reported/Identified Relationship to Patient Clinical Status Yes Sulfa (Sulfonamide Antibiotics) [id number] Drug Allergy Unknown N/A 015 Medications There is no data. Problems Date Dx Coded Attending Type Code Diagnosis Diagnosed By 01/03/2015 JOE SANCHEZ Ot 053.9 01/03/2015 JOE SANCHEZ Ot 789.00 Procedures There is no data. Results Test Result Range LIPID PANEL - 12/14/18 08:15 CHOLESTEROL, TOTAL 237 mg/dL <200 HDL CHOLESTEROL 89 mg/dL >50 TRIGLYCERIDES 59 mg/dL <150 LDL-CHOLESTEROL 133 mg/dL (calc) NRG CHOL/HDLC RATIO 2.7 (calc) <5.0 NON HDL CHOLESTEROL 148 mg/dL (calc) <13 0 CMP - 12/14/18 08:15 GLUCOSE 112 mg/dL 65-99 UREA NITROGEN (BUN) 18 mg/dL 7-25 CREATININE 1.20 mg/dL 0.60-0.88 eGFR NON-AFR. LAO 42 mL/min/1.73m2 > OR = 60 eGFR 49 mL/min/1.73m2 > OR = 60 BUN/CREATININE RATIO 15 (calc) 6-22 SODIUM 142 mmol/L 135-146 POTASSIUM 3.9 mmol/L 3.5-5.3 CHLORIDE 108 mmol/L 98-110 CARBON DIOXIDE 26 mmol/L 20-32 CALCIUM 9.3 mg/dL 8.6-10.4 PROTEIN, TOTAL 6.4 g/dL 6.1-8.1 ALBUMIN 4.2 g/dL 3.6-5.1 GLOBULIN 2.2 g/dL (calc) 1.9-3.7 ALBUMIN/GLOBULIN RATIO 1.9 (calc) 1.0-2. 5 BILIRUBIN, TOTAL 0.7 mg/dL 0.2-1.2 ALKALINE PHOSPHATASE 80 U/L 33-130 AST 22 U/L 10-35 ALT 13 U/L 6-29 CBC - 04/16/19 08:15 WHITE BLOOD CELL COUNT 5.4 Thousand/uL 3 .8-10.8 RED BLOOD CELL COUNT 3.58 Million/uL 3.8 0-5.10 HEMOGLOBIN 11.8 g/dL 11.7-15.5 HEMATOCRIT 34.7 % 35.0-45.0 MCV 96.9 fL 80.0-100.0 MCH 33.0 pg 27.0-33.0 MCHC 34.0 g/dL 32.0-36.0 RDW 12.4 % 11.0-15.0 PLATELET COUNT 258 Thousand/uL 140-400 MPV 9.4 fL 7.5-12.5 ABSOLUTE NEUTROPHILS 2705 cells/uL 1500- 7800 ABSOLUTE LYMPHOCYTES 2030 cells/uL 850-3 900 ABSOLUTE MONOCYTES 443 cells/uL 200-950 ABSOLUTE EOSINOPHILS 162 cells/uL 15-500 ABSOLUTE BASOPHILS 59 cells/uL 0-200 NEUTROPHILS 50.1 % NRG LYMPHOCYTES 37.6 % NRG MONOCYTES 8.2 % NRG EOSINOPHILS 3.0 % NRG BASOPHILS 1.1 % NRG CULTURE, URINE - 03/05/19 19:00 CULTURE, URINE, ROUTINE SEE NOTE NRG VITAMIN D, 25-H - 06/21/19 08:44 VITAMIN D,25-OH,TOTAL,IA 57 ng/mL 30-10 0 Encounters ACCT No. Visit Date/Time Discharge Status Pt. Type Provider Facility Loc./Unit Complaint [id number] 12/20/2019 08:20:00 12/20/2019 23:59: 59 [facility] [id number] 06/21/2019 08:00:00 Document Registration [id number] 03/05/2019 16:50:00 Document Registration [id number] 12/14/2018 08:15:00 Document Registration [id number] 01/02/2020 15:28:00 020 17:22:00 DIS Emergency TINO SAGE MD [facility] FS OFF BALANCE, NO APPETIT E [id number] 01/03/2015 19:07:00 015 21:35:00 DIS Emergency JOE SANCHEZ [facility]
--- OUTSIDE RECORDS SUMMARY | 2020-01-02 17:24 | XMS REPORT ---
Author Author Conchita URENA Organization [facility] Address [address] [place] [address] Care Team Providers Care Solder Cream Maker Name Role Phone MOUNA URENA Unavailable PROBLEMS Type Condition ICD9-CM Code GOP01-BK Code Onset Dates Condition S tatus SNOMED Code Problem AK (actinic keratosis) 702.0 15 May, 2018 0 [id number] Problem Renal insufficiency 593.9 19 May, 2017 0 022693075 Problem Essential hypertension 401.9 13 Jan, 2015 0 82902260 Problem Autoimmune disorder D89.89 14 Jul, 2018 0 77059440 Problem Glucose intolerance (impaired glucose tolerance) 790.22 20 Jul, 2010 0 034774639 Problem History of shingles V12.09 21 Oct, 2017 0 [id number] Problem Arthralgia of multiple sites, bilateral 719.49 07 Jul, 2018 0 77425927 Problem Seasonal allergic rhinitis due to pollen J30.1 May, 0 53735533 Problem LFT elevation 790.6 14 Jul, 2018 0 672 41596 Problem Seasonal allergic rhinitis due to pollen 477.0 19 May, 2017 0 15338575 Problem Autoimmune disorder 279.49 14 Jul, 2018 0 81964571 Problem SK (seborrheic keratosis) 702.19 15 May, 2018 0 956796563 Problem Closed Colles fracture S52.539A December, 0 016958152 Problem Closed Colles fracture 813.41 December, 0 522415572 Problem PHN (postherpetic neuralgia) B02.29 Jan, 201 5 0 3695430 Problem CKD (chronic kidney disease) stage 2, GFR 60-89 ml/min 585.2 14 Jul, 2018 0 835973013 Problem Recurrent pain of right knee M25.561 Oct, 201 8 0 507722696 Problem Squamous cell carcinoma C44.92 03 Jan, 2015 0 42888676 Problem LFT elevation R94.5 14 Jul, 2018 0 672 46051 Problem Arthralgia of multiple sites, bilateral M25.50 07 Jul, 2018 0 58255771 Problem AK (actinic keratosis) L57.0 15 May, 2018 0 340614438 Problem CKD (chronic kidney disease) stage 2, GFR 60-89 ml/min N18.2 14 Jul, 2018 0 692233326 Problem History of shingles Z86.19 Oct, 0 [id number] Problem Hypertension I10 Active 0905462 3 Problem Squamous cell carcinoma 173.92 03 Jan, 2015 0 49143952 Problem Other chronic pain G89.29 Active 8 8885824 Problem Recurrent pain of right knee 719.46 Oct, 8 0 180427644 Problem PHN (postherpetic neuralgia) 053.19 Jan, 201 5 0 851834879 Problem SK (seborrheic keratosis) L82.1 15 May, 2018 0 620006768 Problem Glucose intolerance (impaired glucose tolerance) R73.02 Jul, 0 685210737 Problem Essential hypertension I10 13 Jan, 2015 0 53916977 Problem Renal insufficiency N28.9 May, 0 821847061 ALLERGIES No Information ENCOUNTERS Encounter Location Date Diagnosis [address] [address] May, [address] [address] Mar, [address] [address] Feb, [address] [address] Feb, [facility] [address] [place] [address] Feb, UTI (lower urinary tract infection) N39. 0 and Dysuria R30.[address] [address] Nov, Hypertension I10 ; Renal insufficiency N28.9 ; Other chronic pain G89.29 ; Pain in right knee M25.561 and Rheumatoid factor positive R76.[address] [address] Nov, Hypertension I10 and Renal insufficiency N28.9 [facility] ANA PAULA [id number] [place] [address] Oct, [facility] [address] [place] [address] Oct, [facility] [address] [place] [address] Oct, [facility] ANA PAULA[address] [address] Aug, Encounter to establish care Z76.89 ; HBcAb negative Z78.9 ; Blood creatinine increased compared with prior measurement R79.89 ; Positive ISAIAH (antinuclear antibody) R76.8 ; Rheumatoid factor positive R76.8 ; Post-nasal drainage R09.82 and Cardiac murmur R01.1 [facility] [place] [address] Aug, [facility] [address] [id number] [address] [place] [address] Jul, [facility] [address] [id number] [address] [place] [phone] Jul, [facility] [address] [id number] [address] [place] [phone] Jul, [facility] [address] [id number] [address] [place] [phone] Jul, [facility] [address] [id number] [address] [place] [phone] Jul, [facility] [address] [id number] [address] [place] [phone] Jul, [facility] [address] [id number] [address] [place] [phone] May, [facility] [address] [id number] [address] [place] [phone] May, [facility] [address] [facility]NOTE 3[facility] [id number] [address] [place] [phone] Nov, IMMUNIZATIONS No Known Immunizations SOCIAL HISTORY Never Assessed REASON FOR VISIT medication refill PLAN OF CARE VITAL SIGNS MEDICATIONS Medication Instructions Dosage Frequency Start Date End Date Duration S adal Lisinopril 20 MG Orally Once a day 1 tablet 24h Aug, 90 days Active Chlorthalidone 25 MG Orally Once a day 1 tablet in the morning with food 24h Aug, 90 days Active RESULTS No Results PROCEDURES No Known procedures INSTRUCTIONS MEDICATIONS ADMINISTERED No Known Medications MEDICAL (GENERAL) HISTORY Type Description Date Medical History Glucose Intolerance Medical History Squamous Cell Carcinoma Medical History Hypertension Medical History Renal Insufficiency Medical History Hx Shingles Medical History LFT Elevation Medical History Chronic Kidney DIsease Medical History Autoimmune Disorder Surgical History hysterectomy Hospitalization History hysterectomy
== END 2020-01-02 17:22 | disposition home or self-care (01) ==
LOC: EDUNIT# 15:26 → ER FS 15:28
DX: R53.83 Other fatigue (principal); R00.1 Bradycardia, unspecified; I10 Essential (primary) hypertension; Z88.2 Allergy status to sulfonamides; Z79.82 Long term (current) use of aspirin
CPT/HCPCS: 36415; 70450; 71046; 80053; 81000; 84443; 84484; 85025; 93005

== ENCOUNTER 2020-01-03 07:42 | Emergency (ER) | payer MEDICARE ==
[~2020-01-03] VITALS: Ht 157 cm; Wt 48.0 kg
--- NOTE | 2020-01-03 08:08 | ED General ---
General Chief Complaint: General Problems/Pain Stated Complaint: WEAKNESS,SHAKY Source of Information: Patient Exam Limitations: No Limitations History of Present Illness Date Seen by Provider: January 03, 2020 Time Seen by Provider: 08:04 Initial Comments Presents w c/o of not feeling well and couldn't sleep last night. States had an episode yesterday where she sat in her chair and felt real "shaky". Denies CP, SOA, difficulty speaking or walking. Also states sometimes she gets confused. Lives w her daughter who brought her to ER today. Also seen in this ER yesterday for evaluation. Allergies and Home Medications Allergies Coded Allergies: Sulfa (Sulfonamide Antibiotics) (Unverified Allergy, Unknown, 01/03/15) Home Medications Aspirin 81 Mg Tablet.dr, 81 MG PO DAILY, (Reported) Chlorthalidone 25 Mg Tab, 25 MG PO DAILY, (Reported) Hydrocodone Bit/Acetaminophen 1 Tab Tablet, 1 TAB PO Q4H PRN for PAIN Prescribed by: JOE TOWNSEND on 01/03/152039 Lisinopril 20 Mg Tablet, 20 MG PO BID, (Reported) Potassium Gluconate 500 Mg Tablet, 595 MG PO BID, (Reported) Tramadol Hcl 50 Mg Tablet, 50 MG PO Q4H PRN for PAIN, (Reported) Patient Home Medication List Home Medication List Reviewed: Yes Review of Systems Review of Systems Constitutional: see HPI; No chills, No diaphoresis, No dizziness, No fever; malaise, weakness EENTM: no symptoms reported Respiratory: No cough, No short of breath Cardiovascular: No chest pain, No edema, No palpitations, No syncope Gastrointestinal: No abdominal pain; loss of appetite; No nausea, No vomiting Genitourinary: No dysuria, No frequency Musculoskeletal: No back pain, No joint pain Skin: No lesions, No lumps, No rash Psychiatric/Neurological: Denies Headache, Denies Numbness, Denies Paresthesia, Denies Seizure, Denies Tingling; Tremors, Weakness Past Jadntog-Xuwprk-Qepopg Hx Past Med/Social Hx: Reviewed Nursing Past Med/Soc Hx Patient Social History 2nd Hand Smoke Exposure: No Recent Foreign Travel: No Contact w/Someone Who Travel: No Recent Hopitalizations: No Seasonal Allergies Seasonal Allergies: No Past Medical History Surgeries: Yes Hysterectomy Respiratory: No Cardiac: Yes Hypertension Neurological: No Reproductive Disorders: No Genitourinary: No Gastrointestinal: No Musculoskeletal: No Endocrine: No HEENT: No Cancer: No Psychosocial: No Integumentary: Yes (CHICKEN POX A CHILD) Blood Disorders: No Family Medical History No Pertinent Family Hx Physical Exam Vital Signs Vital Signs - First Documented 01/03/20 08:00 Temp 36.6 Pulse 59 Resp 16 B/P (MAP) 129/56 (80) Pulse Ox 96 Capillary Refill : Height, Weight, BMI Height: 4'9" Weight: 110lbs. oz. 49.529087lu; 19.00 BMI Method:Stated General Appearance: No Apparent Distress, WD/WN HEENT: TMs Normal, Normal ENT Inspection Neck: Full Range of Motion, Normal Inspection, Non Tender, Supple, Carotid Bruit Respiratory: Chest Non Tender, Lungs Clear, Normal Breath Sounds, No Accessory Muscle Use, No Respiratory Distress Cardiovascular: Regular Rate, Rhythm, No Edema, No Gallop, No JVD, No Murmur, Normal Peripheral Pulses Gastrointestinal: Normal Bowel Sounds, No Organomegaly, No Pulsatile Mass, Non Tender, Soft Back: Normal Inspection, No Vertebral Tenderness Extremity: Normal Capillary Refill, Normal Inspection, Normal Range of Motion Neurologic/Psychiatric: Alert, Oriented x3, No Motor/Sensory Deficits, Normal 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/Affect, 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 Norm as Tested Skin: Normal Color, Warm/Dry Progress/Results/Core Measures Suspected Sepsis SIRS Temperature: Pulse: Respiratory Rate: Laboratory Tests 01/03/20 08:06: White Blood Count 5.7 Blood Pressure / Mean: Laboratory Tests 01/03/20 08:06: Creatinine 1.13, Platelet Count 192, Total Bilirubin 0.6 Results/Orders Lab Results Laboratory Tests Test 01/03/20 08:06 Range/Units White Blood Count 5.7 4.3-11.0 10^3/uL Red Blood Count 3.35 L 4.35-5.85 10^6/uL Hemoglobin 11.3 L 11.5-16.0 G/DL Hematocrit 32 L 35-52 % Mean Corpuscular Volume 96 80-99 FL Mean Corpuscular Hemoglobin 34 25-34 PG Mean Corpuscular Hemoglobin Concent 35 32-36 G/DL Red Cell Distribution Width 13.0 10.0-14.5 % Platelet Count 192 130-400 10^3/uL Mean Platelet Volume 8.7 7.4-10.4 FL Neutrophils (%) (Auto) 67 42-75 % Lymphocytes (%) (Auto) 22 12-44 % Monocytes (%) (Auto) 10 0-12 % Eosinophils (%) (Auto) 1 0-10 % Basophils (%) (Auto) 1 0-10 % Neutrophils # (Auto) 3.8 1.8-7.8 X 10^3 Lymphocytes # (Auto) 1.2 1.0-4.0 X 10^3 Monocytes # (Auto) 0.5 0.0-1.0 X 10^3 Eosinophils # (Auto) 0.1 0.0-0.3 10^3/uL Basophils # (Auto) 0.0 0.0-0.1 10^3/uL Sodium Level 135 135-145 MMOL/L Potassium Level 3.6 3.6-5.0 MMOL/L Chloride Level 97 L 98-107 MMOL/L Carbon Dioxide Level 22 21-32 MMOL/L Anion Gap 16 H 5-14 MMOL/L Blood Urea Nitrogen 18 7-18 MG/DL Creatinine 1.13 0.60-1.30 MG/DL Estimat Glomerular Filtration Rate 46 BUN/Creatinine Ratio 16 Glucose Level 120 H 70-105 MG/DL Calcium Level 9.4 8.5-10.1 MG/DL Corrected Calcium 9.4 8.5-10.1 MG/DL Total Bilirubin 0.6 0.1-1.0 MG/DL Aspartate Amino Transf (AST/SGOT) 23 5-34 U/L Alanine Aminotransferase (ALT/SGPT) 13 0-55 U/L Alkaline Phosphatase 62 40-136 U/L Troponin I < 0.30 <0.30 NG/ML Total Protein 6.4 6.4-8.2 GM/DL Albumin 4.0 3.2-4.5 GM/DL My Orders Orders - ROVENSTINE,CIERRA L DO Ed Iv/Invasive Line Start (01/03/20 08:02) Cbc With Automated Diff (01/03/20 08:02) Comprehensive Metabolic Panel (01/03/20 08:02) Troponin I Fs (01/03/20 08:02) Vital Signs/I&O 01/03/20 09:45 Temp 36.4 Pulse 56 Resp 16 B/P (MAP) 135/56 Pulse Ox 97 Capillary Refill : ECG Initial ECG Rhythm: Normal Sinus Initial ECG Intervals: Normal Departure Impression Primary Impression: Weakness Additional Impressions: Insomnia Qualified Codes: G47.00 - Insomnia, unspecified Dementia Qualified Codes: F03.90 - Unspecified dementia without behavioral disturbance Disposition: 01 HOME, SELF-CARE Condition: Stable Departure-Patient Inst. Referrals: [facility] (PCP/Family) Primary Care Physician Patient Instructions: Generalized Weakness (DC), Insomnia (DC), Dementia (Including Alzheimer Disease) Add. Discharge Instructions: Make an appointment to see your Primary Doctor in 1 to 2 days for further evaluation. All discharge instructions reviewed with patient and/or family. Voiced understanding. CIERRA RAMOS DO January 03, 2020 08:08
[2020-01-03 08:18] LABS: HEMATOCRIT 32 % (35-52); HEMOGLOBIN 11.3 G/DL (11.5-16.0); MEAN CORPUSCULAR HEMOGLOBIN 34 PG (25-34); MEAN CORPUSCULAR HGB CONC 35 G/DL (32-36); MEAN CORPUSCULAR VOLUME 96 FL (80-99); MEAN PLATELET VOLUME 8.7 FL (7.4-10.4); PLATELET COUNT 192 10^3/uL (130-400); WHITE BLOOD COUNT 5.7 10^3/uL (4.3-11.0)
[2020-01-03 08:19] LABS: BASOPHILS % (AUTO) 1 % (0-10); EOSINOPHILS # (AUTO) 0.1 10^3/uL (0.0-0.3); EOSINOPHILS % (AUTO) 1 % (0-10); LYMPHOCYTES # (AUTO) 1.2 X 10^3 (1.0-4.0); LYMPHOCYTES % (AUTO) 22 % (12-44); MONOCYTES # (AUTO) 0.5 X 10^3 (0.0-1.0); MONOCYTES % (AUTO) 10 % (0-12); NEUTROPHILS # (AUTO) 3.8 X 10^3 (1.8-7.8); NEUTROPHILS % (AUTO) 67 % (42-75)
[2020-01-03 08:34] LABS: CHLORIDE 97 MMOL/L (98-107); POTASSIUM 3.6 MMOL/L (3.6-5.0); SODIUM 135 MMOL/L (135-145)
[2020-01-03 08:35] LABS: ALANINE AMINOTRANSFERASE 13 U/L (0-55); ALKALINE PHOSPHATASE 62 U/L (40-136); BILIRUBIN,TOTAL 0.6 MG/DL (0.1-1.0); BUN/CREATININE RATIO 16; CALCIUM 9.4 MG/DL (8.5-10.1); CARBON DIOXIDE 22 MMOL/L (21-32); CREATININE SERUM 1.13 MG/DL (0.60-1.30); GFR ESTIMATED 46; GLUCOSE 120 MG/DL (70-105); TOTAL PROTEIN 6.4 GM/DL (6.4-8.2)
--- NOTE | 2020-01-03 08:44 | NUR ---
After talking with patient, doctor and I felt that she might have some depression and anxiety. I asked her if she was depressed or upset from being cooped up from COVID and she stated that her daughter will not allow her to go anywhere. I told her if she needs to talk to anyone that she can talk to me. She stated that she might as well be by herself. She stated she woke her up this morning and told him she did not have a good night and he told her he didn't have a good night either. Dr. Jimenez and I believed that the patient needs to talk to someone. I made an appointment at 1000 at [facility] with Jose Romano. I called and spoke to the daughter about what was going on. She understood the appointment, but was asking about the bradycardia from yesterday and her needing a follow-up. I explained that we did all labs, CT, xrays, EKGs that we could and that she needs to follow-up with her PCP about why she is tired, confused at times, and the bradycardia. I made an appointment for 1500 today with Flor Beal to follow-up. Today she has been 54-68 bpm. Daughter understood and thanked us for everything. I told her I would take her over to [facility] for her 1000 appt and give them her number so they can call when she is about done. Daughter is going to go home until then. I also told her that I would call and give the nurse a heads up on what has been going on.
--- NOTE | 2020-01-03 09:24 | NUR ---
Spoke with [facility] nurse and informed her of the situation with the patient and why she was needing to be seen.
--- NOTE | 2020-01-03 09:34 | NUR ---
Keeping patient in ER until her appointment with Jose Romano at 1000.
[2020-01-03 09:45] VITALS: BP 135/56
== END 2020-01-03 09:45 | disposition home or self-care (01) ==
LOC: EDUNIT# 07:42 → ER FS 07:44
DX: R53.1 Weakness (principal); G47.00 Insomnia, unspecified; F03.90 Unspecified dementia, unspecified severity, without behavioral disturbance, psychotic disturbance, mood disturbance, and anxiety; I10 Essential (primary) hypertension; Z88.2 Allergy status to sulfonamides; Z79.82 Long term (current) use of aspirin
CPT/HCPCS: 36415; 80053; 84484; 85025

== ENCOUNTER 2020-01-05 11:39 | Outpatient (RCR) | payer MEDICARE ==
[2020-02-29] MEDS ORDERED: LISI-552 PO (11:40)
[2020-02-29] MEDS ORDERED: OMEG1CAP58 PO (11:40)
[2020-02-29] MEDS ORDERED: CHOL500049 PO (11:40)
[2020-02-29] MEDS ORDERED: ACET-2650 PO (11:40)
[2020-02-29] MEDS ORDERED: MAGN250T13 PO (11:40)
[2020-02-29] MEDS ORDERED: AMLO2.5T4 PO (11:40)
[2020-02-29] MEDS ORDERED: AMIT25TA9 PO (11:40)
[2020-03-01] MEDS ORDERED: CLOP75TA28 PO (06:58)
[2020-03-01] MEDS ORDERED: PANT40SU PO (06:58)
[2020-03-01] MEDS ORDERED: ATOR10TA PO (08:38)
== END 2020-04-04 | disposition still patient (30) ==
LOC: CARD 11:39
PROVIDERS: ATTEND Physician Assistant
DX: I12.9 Hypertensive chronic kidney disease with stage 1 through stage 4 chronic kidney disease, or unspecified chronic kidney disease (principal); N18.9 Chronic kidney disease, unspecified; I49.1 Atrial premature depolarization; I49.3 Ventricular premature depolarization
CPT/HCPCS: 93225; 93226

== ENCOUNTER → 2020-02-16 | Outpatient (CLI) | payer MEDICARE | LOC: CARD 13:25 | PROVIDERS: ATTEND Internal Medicine Cardiovascular Disease | DX: I08.3 Combined rheumatic disorders of mitral, aortic and tricuspid valves (principal); I12.9 Hypertensive chronic kidney disease with stage 1 through stage 4 chronic kidney disease, or unspecified chronic kidney disease; N18.9 Chronic kidney disease, unspecified | CPT/HCPCS: 93306 ==

== ENCOUNTER → 2020-02-22 | Outpatient (CLI) | payer MEDICARE ==
[~2020-02-22] VITALS: Ht 149 cm; Wt 47.0 kg
[~2020-02-22] MED LIST changes: +CATHETER FLUSH 10 ML SYR IV PRN; +REGADENOSON 0.4 MG/5 ML SYR (LEXISCAN) IV ONE
[2020-02-22 14:21] VITALS: BP 218/97
--- NOTE | 2020-02-22 14:21 | Cardiology Stress Test Report ---
Stress Test Report Date of Procedure/Referring: Date of Procedure: Feb 22, 2020 PCP Fady Rodríguez MD Admitting Physician Center/[facility] Indications: Hypertension, bradycardia Baseline Heart Rate: 65 Baseline Blood Pressure: Blood Pressure Systolic: 218 Blood Pressure Diastolic: 97 Baseline EKG: Baseline EKG: Normal sinus rhythm Summary/Conclusion Patient received 0.4 mg Lexiscan for stress test, ECG, heart rate and blood pressure were monitored continuously. Resting and stress dose of radio tracer were injected, imaging was acquired and reviewed in short axis, horizontal long axis and vertical long axis views. TID 0.94 SSS 5 SDS 5 EF 67% Conclusion 1. Patient tolerated Lexiscan well. 2. Severe hypertension persisted throughout test 3. Normal sinus rhythm with no EKG changes noted during test 4. Breast attenuation with mild ischemia involving the mid to apical anterior wall 5. Normal left ventricular size and contractility, EF 67 percent FADY RODRÍGUEZ MD Feb 22, 2020 14:20
== END ==
LOC: CARD 08:17
PROVIDERS: ATTEND Internal Medicine Cardiovascular Disease
DX: I12.9 Hypertensive chronic kidney disease with stage 1 through stage 4 chronic kidney disease, or unspecified chronic kidney disease (principal); R00.1 Bradycardia, unspecified; N18.9 Chronic kidney disease, unspecified
CPT/HCPCS: 78452; 93017; A9502

== ENCOUNTER → 2020-02-27 | Outpatient (CLI) | payer MEDICARE ==
[~2020-02-27] MED LIST changes: +ACET-2650 PO; +AMIT25TA9 PO; +AMLO2.5T4 PO; +ATOR10TA PO; -CATHETER FLUSH 10 ML SYR IV PRN; +CHOL500049 PO; +CLOP75TA28 PO; +LISI-552 PO; +MAGN250T13 PO; +OMEG1CAP58 PO; +PANT40SU PO; -REGADENOSON 0.4 MG/5 ML SYR (LEXISCAN) IV ONE
== END ==
LOC: LABNPT 06:41
PROVIDERS: ATTEND Internal Medicine Cardiovascular Disease
DX: Z01.818 Encounter for other preprocedural examination (principal); Z20.828 Contact with and (suspected) exposure to other viral communicable diseases
CPT/HCPCS: 87635

== ENCOUNTER 2020-02-29 10:39 | Day surgery (SDC) | payer MEDICARE ==
[~2020-02-29] VITALS: Ht 149.8 cm; Wt 45.0 kg
[~2020-02-29 10:39] MED LIST changes: -ACET-2650 PO; -AMIT25TA9 PO; -AMLO2.5T4 PO; -ATOR10TA PO; -CHOL500049 PO; -CLOP75TA28 PO; -LISI-552 PO; -MAGN250T13 PO; -OMEG1CAP58 PO; -PANT40SU PO
[2020-02-29] MEDS ORDERED: NS IV 1000 ML 1,000 ML ONE (10:50)
[2020-02-29] MEDS ORDERED: HEParin (CATH LAB) 2,000 ML IV ONE (10:50)
[2020-02-29] MEDS ORDERED: LIDOCAINE 1% INJ 20 ML 20 ML VIAL ONE (10:50)
[2020-02-29] MEDS ORDERED: NS IV 1000 ML 1,000 ML IV SCH ×2 (11:00→11:50)
[2020-02-29 11:18] LABS: HEMOGLOBIN 10.5 G/DL (11.5-16.0); MEAN PLATELET VOLUME 8.3 FL (7.4-10.4); RED CELL DISTRIBUTION WIDTH 13.7 % (10.0-14.5); WHITE BLOOD COUNT 5.4 10^3/uL (4.3-11.0)
[2020-02-29 11:20] VITALS: BP 192/84
[2020-02-29] MEDS ORDERED: LISI-552 PO (11:40)
[2020-02-29] MEDS ORDERED: ACET-2650 PO (11:40)
[2020-02-29] MEDS ORDERED: CHOL500049 PO (11:40)
[2020-02-29] MEDS ORDERED: MAGN250T13 PO (11:40)
[2020-02-29] MEDS ORDERED: AMLO2.5T4 PO (11:40)
[2020-02-29] MEDS ORDERED: OMEG1CAP58 PO (11:40)
[2020-02-29] MEDS ORDERED: AMIT25TA9 PO (11:40)
[2020-02-29 11:43] LABS: ALANINE AMINOTRANSFERASE 9 U/L (0-55); ALBUMIN 3.9 GM/DL (3.2-4.5); ALKALINE PHOSPHATASE 62 U/L (40-136); BILIRUBIN,TOTAL 0.5 MG/DL (0.1-1.0); BUN/CREATININE RATIO 13; CALCIUM 9.1 MG/DL (8.5-10.1); CARBON DIOXIDE 23 MMOL/L (21-32); CHLORIDE 110 MMOL/L (98-107); CHOLESTEROL 231 MG/DL (< 200); CREATININE SERUM 0.88 MG/DL (0.60-1.30); GFR ESTIMATED > 60; GLUCOSE 96 MG/DL (70-105); HDL CHOLESTEROL 72 MG/DL (40-60); POTASSIUM 3.7 MMOL/L (3.6-5.0); SODIUM 142 MMOL/L (135-145); TOTAL PROTEIN 6.5 GM/DL (6.4-8.2); TRIGLYCERIDES 70 MG/DL (<150); VLDL CHOLESTEROL 14 MG/DL (5-40)
--- NOTE | 2020-02-29 11:46 | Diagnostic Imaging Report ---
INDICATION: Preop for heart catheterization. TIME OF EXAM: 11:31 AM. COMPARISON: 01/02/2020. FINDINGS: The heart size is normal. The pulmonary vascularity is unremarkable. The lungs are clear. No infiltrate, effusion, or pneumothorax is detected. IMPRESSION: No acute cardiopulmonary process is detected. Dictated by: Dictated on workstation # [id number]
--- NOTE | 2020-02-29 11:50 | Cardiac Procedure Note-CS/ASA ---
Pre-Procedure Note Pre-Op Procedure Note H&P Reviewed The H&P was reviewed, patient examined and no changes noted. Date H&P Reviewed: Feb 29, 2020 Time H&P Reviewed: 11:49 Conscious Sedation Pre-Proced Time 11:49 ASA Score 3 For ASA 3 and 4: Consider anesthesia and medical clearance. Also, for patients with a history of failed moderate sedation consider anesthesia. Airway Lungs Heart ASA score ASA 1: a normal healthy patient ASA 2: a patient with a mild systemic disease (mid diabetes, controlled hypertension, obesity x ASA 3: a patient with a severe systemic disease that limits activity (angina, COPD, prior Myocardial infarction) ASA 4: a patient with an incapacitating disease that is a constant threat to life (CHF, renal failure) ASA 5: a moribund patient not expected to survive 24 hrs. (ruptured aneurysm) ASA 6: a declared brain- patient whose organs are being harvested. For emergent operations, add the letter E after the classification Mallampati Classification Grade 3 Sedation Plan Analgesia, Amnesia, Plan communicated to team members, Discussed options with patient/fam, Discussed risks with patient/fam The patient is an appropriate candidate to undergo the planned procedure, sedation, and anesthesia. The patient immediately re-assessed prior to indication. FADY AARON MD Feb 29, 2020 11:50
[2020-02-29] MEDS ORDERED: PATIENT MAY USE OWN MEDS, ALL PO SCH ×2 (12:00→14:00)
[2020-02-29] MEDS ORDERED: MIDAZOLAM 5 MG/5 ML (VERSED) VIAL ONE (12:13)
[2020-02-29] MEDS ORDERED: HEParin 1000 UNIT/ML (10ML VIAL) FOR BOLUS ONE (12:14)
[2020-02-29] MEDS ORDERED: NITRO DRIP 25000 MCG/D5W 250 ML IV ONE (12:14)
[2020-02-29] MEDS ORDERED: fentaNYL INJECTION 100 MCG/2 ML AMP ONE (12:14)
[2020-02-29] MEDS ORDERED: VERAPAMIL 5 MG/2 ML (CALAN) VIAL IV ONE (12:14)
[2020-02-29 12:37] LABS: PROTHROMBIN TIME PATIENT 13.6 SEC (12.2-14.7)
[2020-02-29] MEDS ORDERED: meTOprolol 5 MG/5 ML (LOPRESSOR) VIAL ONE (13:07)
[2020-02-29] MEDS ORDERED: ADENOSINE 3 MG/1 ML (ADENOSCAN) 30ML VIAL IV ONE (13:26)
[2020-02-29] MEDS ORDERED: CLOPIDOGREL 300 MG (PLAVIX) TABLET PO ONE (13:59)
[2020-02-29] MEDS ORDERED: ASPIRIN 325 MG (5 GR) TABLET ONE (13:59)
[2020-02-29] MEDS ORDERED: NON-FORMULARY MEDICATION 1 EA EA (Acetaminophen (Tylenol Arthritis) 650 MG) PO PRN (14:00)
[2020-02-29] MEDS ORDERED: cloNIDine 0.1 MG (CATAPRES) TAB PO NR (14:15)
--- NOTE | 2020-02-29 14:15 | Cardiac Cath Report ---
Cardiac Cath Report Physician (s)/Wafer Fabrication Operator (s) Physician FADY AARON MD Pre-Procedure Diagnosis Pre-Procedure Diagnosis: Coronary artery disease Post-Procedure Note Procedure Start Date: Feb 29, 2020 Name of Procedure: Left heart catheterization FFR to LAD Stent to LAD FFR to RCA Findings/Procedure Note PROCEDURE NOTE: 85-year-old lady with history of hypertension, hyperlipidemia, has been having chest pain, had an abnormal stress test scheduled for cardiac catheterization possible PTCA. After explaining the procedure to the patient, all pros and cons were explained, all questions were answered. The patient signed the consent and then she was placed on the cardiac catheterization laboratory. Groin was prepped SL fashion local anesthesia was used. Sheath placed in the right femoral artery. Anita right and left catheter were used to access the coronary system. Pigtail was used to access the left ventricular cavity. Left ventriculogram was not done Patient was given 5000 units of heparin, I tried multiple different guides, was able to intubate the left system with the FL 4.0, pressure wire was advanced and baseline pressure gradient was 0.87. Patient was started on adenosine drip and FFR was down to 0.79, drip was stopped, I proceeded with balloon angioplasty using emerge 2.5 x 20 then deployed Theresa 2.25 x 18 mm under 14 ernestina expanded to 2.5 mm in the mid LAD with excellent results. Patient had questionable lesion in the right coronary artery appeared to be 50- 60 percent stenosis. I used an FR guide advanced to the right coronary artery and FFR at baseline was 1.0 after 2 minutes of adenosine FFR was 0.9. At the end of the procedure the sheath was removed. Closure device was used FINDINGS: Hemodynamics LV 134/14, end-diastolic pressure 14 Aorta 149/62 mean of 94 ANATOMY: Left Main is free of obstructive disease Left Anterior Descending is tortuous with significant stenosis in the midportion 70-80 percent significant 70-80 percent stenosis at the midportion, FFR after challenge was 0.79, successful angioplasty and deployment of Xience Theresa 2.25 x 18 mm stent in the mid LAD expanded to 2.5 mm with excellent results Left Circumflex is moderate in size with no obstructive disease, mild disease in the midportion Right Coronory Artery is dominant artery moderate in size with 50-60 percent so that the midportion, FFR was 1.0, after challenge was 0.86 LV Gram was not done, pressure was measured CONCLUSION: 1. 70-80 percent stenosis in the mid LAD, FFR was done then deployment of Xience Theresa 2.25 x 18 mm expanded to 2.5 mm with excellent results. 2. 50-60 percent stenosis in the mid RCA FFR 0.86 after adenosine challenge 3. Multiple moderate disease in the mid circumflex artery, nonobstructive disea se 4. Severe hypertension noted during procedure requiring IV Lopressor 5. Normal left ventricular end-diastolic pressure DISCUSSION AND RECOMMENDATION: Patient was started on aspirin and Plavix. Continue current medications Anesthesia Type: Conscious Sedation Estimated blood loss (mL): 30 ml Contrast Amount: 135 ml Total Radiation Dose: 407 mGy Post-Procedure Diagnosis Post-operative diagnosis: Chest pain Coronary artery disease Hypertension Hyperlipidemia FADY AARON MD Feb 29, 2020 14:14
[2020-02-29 15:00] VITALS: BP 169/77
[2020-02-29 16:00] VITALS: BP 155/81
[2020-02-29] MEDS ORDERED: ACETAMINOPHEN 325 MG TABLET PO PRN (16:30)
[2020-02-29 17:00] VITALS: BP 143/95
[2020-02-29 18:00] VITALS: BP 132/81
[2020-02-29] MEDS ORDERED: ACETAMINOPHEN 650 MG PO PRN (18:15)
[2020-02-29] MEDS: NS IV 1000 ML 1,000 ML IV SCH (19:00)
[2020-02-29 20:00] VITALS: BP 134/90
[2020-03-01] VITALS: BP 168/73
[2020-03-01] MEDS: NS IV 1000 ML 1,000 ML IV SCH ×2 (00:24→00:25)
[2020-03-01 04:00] VITALS: BP 163/64
[2020-03-01 05:47] LABS: MEAN PLATELET VOLUME 8.3 FL (7.4-10.4); RED CELL DISTRIBUTION WIDTH 13.6 % (10.0-14.5); WHITE BLOOD COUNT 6.2 10^3/uL (4.3-11.0)
[2020-03-01 06:08] LABS: BUN/CREATININE RATIO 15; CALCIUM 8.5 MG/DL (8.5-10.1); CARBON DIOXIDE 21 MMOL/L (21-32); CHLORIDE 111 MMOL/L (98-107); CREATININE SERUM 0.88 MG/DL (0.60-1.30); GFR ESTIMATED > 60; GLUCOSE 87 MG/DL (70-105); POTASSIUM 3.7 MMOL/L (3.6-5.0); SODIUM 141 MMOL/L (135-145)
[2020-03-01] MEDS ORDERED: PANT40SU PO (06:58)
[2020-03-01] MEDS ORDERED: CLOP75TA28 PO (06:58)
--- NOTE | 2020-03-01 06:58 | Discharge Inst-Post CATH ---
Discharge Inst-CATH/EP Problems Reviewed?: Yes Post Cardiac Cath/EP D/C Inst Follow Up/Plan Appointment with Dr Rodríguez in 2-4 weeks <b>CARDIAC CATH/EP PROCEDURE DISCHARGE INSTRUCTIONS</b> ACTIVITY * Go Home directly and rest. * Limit activity of the leg (or wrist if it was used) for 7 days including aerobics, swimming, jogging, bicycling, etc. * Restrict stair-climbing for 7 days if possible, if not, climb up with your non-cath leg, then bring together on the same step. * Avoid lifting, pushing, pulling or excessive movement of the affected extremity for 7 days. * Customary sexual activity may be resumed after 2 days-use caution not to use a position that strains or causes pain to the affected extremity. * No driving for 24 hours. * NO SMOKING. * Avoid straining for bowel movements for 7 days. * Gentle walking on level ground is allowed. * Returning to work will depend on the type of procedure and the results. Your doctor will discuss this with you. CALL YOUR DOCTOR FOR ANY OF THE FOLLOWING: *If bleeding from the puncture site occurs- Apply gentle pressure to site with clean cloth and call your doctor or EMS. * If a knot or lump forms under the skin, increases in size, or causes pain. * If bruising appears to be worsening or moving further down your leg instead of disappearing. * Temperature above 101 F. CARE OF YOUR GROIN INCISION; * Bruising or purple discoloration of the skin near the puncture site is common. * You may shower only, no bathtub bathing for 5 days. Be careful to avoid slipping as your leg may feel stiff. * If a closure device was used on your femoral artery, please see the attached guide regarding care of the device and your leg. * Leave dressing on FOR 24 hours. CARE OF YOUR WRIST INCISION; * Bruising or purple discoloration of the skin near the puncture site is common. * You may shower. * DO NOT submerge wrist. * Leave dressing on FOR 24 hours. FADY RODRÍGUEZ MD Mar 01, 2020 06:58
[2020-03-01 08:00] VITALS: BP 155/72
[2020-03-01] MEDS ORDERED: MAGNESIUM OXIDE (MAG-OX)400 MG TAB PO SCH (08:00)
[2020-03-01] MEDS ORDERED: OMEGA 3 (FISH OIL) 1000 MG CAP PO SCH (08:00)
[2020-03-01] MEDS ORDERED: MAGNESIUM 250 MG TABLET PO SCH (08:00)
[2020-03-01] MEDS ORDERED: ATOR10TA PO (08:38)
--- NOTE | 2020-03-01 08:40 | Cardiology Progress Note ---
Subjective Date Seen by Provider: Mar 01, 2020 Time Seen by Provider: 08:39 Subjective/Events-last exam Patient is laying down in bed, groin is healing well. Feeling well Review of Systems General: No Chills, No Night Sweats, No Fatigue, No Malaise, No Appetite, No Other HEENT: No Head Aches, No Visual Changes, No Eye Pain, No Ear Pain, No Dysphasia, No Sinus Congestion, No Post Nasal Drip, No Sore Throat, No Other Pulmonary: No Dyspnea, No Cough, No Pleuritic Chest Pain, No Other Cardiovascular: No: Chest Pain, Palpitations, Orthopnea, Paroxysmal Noc. Dyspnea, Edema, Lt Headedness, Other Objective-Cardiology Exam Last Set of Vital Signs Vital Signs 03/01/20 03/01/20 03/01/20 00:00 04:00 07:00 Temp 37.0 Pulse 60 Resp 18 B/P (MAP) 163/64 (97) Pulse Ox 99 O2 Delivery Room Air Capillary Refill : Less Than 3 Seconds I&O Intake and Output 03/01/20 00:00 Intake Total 200 ml Balance 200 ml Intake Oral 200 ml # Voids 1 General: Alert, Oriented X3, Cooperative HEENT: Atraumatic, PERRLA Neck: Supple, No JVD, No Thyromegaly Lungs: Clear to Auscultation, Normal Air Movement Heart: Regular Rate, Normal S1, Normal S2, No Murmurs Abdomen: Normal Bowel Sounds, Soft, No Tenderness, No Hepatosplenomegaly, No Masses Extremities: No Clubbing, No Cyanosis, No Edema, Normal Pulses, No Tenderness/Swelling Skin: No Rashes, No Breakdown, No Significant Lesion Neuro: Normal Gait, Normal Speech, Strength at 5/5 X4 Ext, Normal Tone, Sensation Intact Psych/Mental Status: Mental Status NL, Mood NL Results Lab Laboratory Tests 02/29/20 11:10 03/01/20 05:40 A/P-Cardiology Admission Diagnosis Coronary artery disease Chest pain Hypertension Hyperlipidemia Assessment/Plan Coronary artery disease status post stenting to the LAD, FFR to the right tomi nary artery and LAD, recovering well. No complication Chest pain and reporting improvement, no further episodes were reported Hypertension, monitor blood pressure Hyperlipidemia, monitor lipids FADY AARON MD Mar 01, 2020 8:40 am
[2020-03-01] MEDS ORDERED: lisINopril 20 MG (PRINIVIL) TABLET PO SCH (09:00)
[2020-03-01] MEDS ORDERED: ASPIRIN E.C. 81 MG (ECOTRIN) TAB PO SCH (09:00)
[2020-03-01] MEDS ORDERED: CLOPIDOGREL 75 MG (PLAVIX) TABLET PO SCH (09:00)
[2020-03-01] MEDS ORDERED: amLODIPine 2.5MG (NORVASC) TAB PO SCH (09:00)
[2020-03-01] MEDS ORDERED: NON-FORMULARY MEDICATION 1 EA EA (Magnesium Oxide (Magnesium) 250 MG) PO SCH (09:00)
--- NOTE | 2020-03-01 11:20 | NUR ---
IV removed. Entire discharge packet discussed with patient. New medications and restrictions discussed with patient. Patient reports that she does not have any further questions att. Follow up appointment scheduled for patient, patient given a follow up appointment card. patients daughter is her ride home. 1120 patients daughter has arrived, patient taken down to registration entrance by Yoselin MONTANEZ, via wheel chair. patient has all of her belongings. Patient was given back her home medications that she brought to the facility.
[2020-03-01] MEDS ORDERED: AMITRIPTYLINE 25 MG (ELAVIL) TAB PO SCH (21:00)
== END 2020-03-01 11:20 | disposition home or self-care (01) ==
LOC: CATH 10:39 → ICU 14:30 → CSD 18:23 → CATH 03-01 11:20
PROVIDERS: ATTEND Internal Medicine Cardiovascular Disease
DX: I25.10 Atherosclerotic heart disease of native coronary artery without angina pectoris (principal); E78.5 Hyperlipidemia, unspecified; I12.9 Hypertensive chronic kidney disease with stage 1 through stage 4 chronic kidney disease, or unspecified chronic kidney disease; N18.9 Chronic kidney disease, unspecified; R53.83 Other fatigue; I49.5 Sick sinus syndrome; I65.23 Occlusion and stenosis of bilateral carotid arteries; Z79.82 Long term (current) use of aspirin; Z79.899 Other long term (current) drug therapy; Z88.2 Allergy status to sulfonamides; Z11.2 Encounter for screening for other bacterial diseases
CPT/HCPCS: 71045; 80048; 80053; 80061; 85027 ×2; 85610; 85730; 87081; 93005; 93458; 93571; 93572; C1725; C1760; C1769; C1874; C1887 ×4; C1894; C9600; 36415

== ENCOUNTER 2021-03-11 05:38 | Outpatient (CLI) | payer MEDICARE ==
[~2021-03-11] VITALS: Ht 55 cm; Wt 45.0 kg
[~2021-03-11 05:38] MED LIST changes: +ACET-2650 PO; +AMIT25TA9 PO; +AMLO2.5T4 PO; +ATOR10TA PO; +CHOL500049 PO; +CLOP75TA28 PO; +LISI20TA26 PO; +MAGN250T13 PO; +OMEG1CAP58 PO; +PANT40SU PO
[2021-03-11] MEDS ORDERED: GLUC100016 PO (13:32)
[2021-03-11] MEDS ORDERED: CHLO25TA22 PO (13:32)
[2021-03-11] MEDS ORDERED: POTA10TA PO (13:35)
== END 2021-03-11 15:44 | disposition home or self-care (01) ==
LOC: PREOP 05:38
PROVIDERS: ATTEND Surgery
DX: Z01.818 Encounter for other preprocedural examination (principal)

== ENCOUNTER → 2021-03-15 | Outpatient (CLI) | payer MEDICARE ==
[~2021-03-15] MED LIST changes: +CHLO25TA22 PO; +GLUC100016 PO; +POTA10TA PO
== END ==
LOC: LAB FS 10:20
PROVIDERS: ATTEND Surgery
DX: Z01.812 Encounter for preprocedural laboratory examination (principal); K29.70 Gastritis, unspecified, without bleeding; R19.7 Diarrhea, unspecified; Z20.822 Contact with and (suspected) exposure to COVID-19
CPT/HCPCS: 87635

== ENCOUNTER → 2021-07-23 | Outpatient (CLI) | payer MEDICARE | LOC: CARD 11:30 | PROVIDERS: ATTEND Physician Assistant | DX: I11.9 Hypertensive heart disease without heart failure (principal); I08.3 Combined rheumatic disorders of mitral, aortic and tricuspid valves | CPT/HCPCS: 93306 ==

== ENCOUNTER → 2022-02-19 | Outpatient (CLI) | payer MEDICARE ==
[~2022-02-19] VITALS: Ht 145 cm; Wt 43.0 kg
[~2022-02-19] MED LIST changes: +REGADENOSON 0.4 MG/5 ML SYR (LEXISCAN) IV ONE
[2022-02-19] MEDS: CATHETER FLUSH 10 ML SYR IVP PRN ×2 (07:11→09:03)
[2022-02-19 09:03] VITALS: BP 173/72
--- NOTE | 2022-02-19 15:31 | Cardiology Stress Test Report ---
Stress Test Report Date of Procedure/Referring: Date of Procedure: Feb 19, 2022 [facility] Admitting Physician Admitting Physician: Attending Physician: Samra Cordero Indications: CAD Baseline Heart Rate: 56 Baseline Blood Pressure: Blood Pressure Systolic: 173 Blood Pressure Diastolic: 72 Baseline Vitals Vital Signs Date Time Temp Pulse Resp B/P (MAP) Pulse Ox O2 Delivery O2 Flow Rate FiO2 02/19/22 09:03 57 20 173/72 (105) 99 Room Air Baseline EKG: Baseline EKG: NSR Summary After explaining the procedure to the patient, she signed a consent and then brought to the stress nuclear laboratory. Patient received 0.4 mg Lexiscan for stress test, ECG, heart rate and blood pressure were monitored continuously. Resting and stress dose of radio tracer were injected, imaging was acquired and reviewed in short axis, horizontal long axis and vertical long axis views. TID: 1.12 SSS: 6 SDS: 6 EF: 79 1. Patient tolerated Lexiscan well 2. Reversible ischemia involving the mid to apical anterior wall and anterolateral wall 3. Normal left ventricular size, EF 79% Copy Copies To 1: [facility] FADY AARON MD Feb 19, 2022 15:31
== END ==
LOC: CARD 07:30
PROVIDERS: ATTEND Physician Assistant
DX: I25.10 Atherosclerotic heart disease of native coronary artery without angina pectoris (principal)
CPT/HCPCS: 78452; 93017; A9502

== ENCOUNTER 2022-03-07 08:30 | Day surgery (SDC) | payer MEDICARE ==
[~2022-03-07] VITALS: Ht 139.7 cm; Wt 43.1 kg
[2022-03-07 07:21] VITALS: BP 155/83
[2022-03-07 07:30] LABS: HEMATOCRIT 36 % (35-52); HEMOGLOBIN 12.2 g/dL (11.5-16.0); MEAN CORPUSCULAR HEMOGLOBIN 33 pg (25-34); MEAN CORPUSCULAR HGB CONC 34 g/dL (32-36); MEAN CORPUSCULAR VOLUME 99 fL (80-99); MEAN PLATELET VOLUME 8.9 fL (9.0-12.2); PLATELET COUNT 212 10^3/uL (130-400); WHITE BLOOD COUNT 5.7 10^3/uL (4.3-11.0)
[2022-03-07 07:41] LABS: ALBUMIN 4.2 GM/DL (3.2-4.5)
[2022-03-07 07:42] LABS: CALCIUM 9.3 MG/DL (8.5-10.1)
[2022-03-07 07:45] LABS: BILIRUBIN,TOTAL 0.5 MG/DL (0.1-1.0)
[2022-03-07 07:47] LABS: CREATININE SERUM 0.85 MG/DL (0.60-1.30)
[2022-03-07 07:49] LABS: PROTHROMBIN TIME PATIENT 13.4 SEC (12.2-14.7)
[~2022-03-07 08:30] MED LIST changes: +AMLO-251 PO; +ASPI-1238 PO; +ATOR10TA66 PO; +CETI10TA17 PO; +CHOL200025 PO; +HEParin (CATH LAB) 2,000 ML IV ONE; +L. R1CAP4 PO; +LIDOCAINE 1% INJ 20 ML VIAL ONE; +LISI40TA9 PO; +LORA10TA7 PO; +MIDAZOLAM 5 MG/5 ML (VERSED) VIAL ONE; +NS IV 1000 ML 1,000 ML IV SCH; +NS IV 1000 ML 1,000 ML ONE; +OMG1KC PO; +POTA99CA PO; -REGADENOSON 0.4 MG/5 ML SYR (LEXISCAN) IV ONE; +fentaNYL INJ 100 MCG/2 ML AMP ONE
[2022-03-07] MEDS ORDERED: HEParin 1000 UNIT/ML (10ML VIAL) FOR BOLUS ONE (08:55)
[2022-03-07] MEDS ORDERED: ADENOSINE 90 MG/30 ML (ADENOSCAN) VIAL IV ONE (08:56)
--- NOTE | 2022-03-07 09:27 | Cardiac Procedure Note-CS/ASA ---
Pre-Procedure Note Pre-Op Procedure Note H&P Reviewed The H&P was reviewed, patient examined and no changes noted. Date H&P Reviewed: Mar 07, 2022 Time H&P Reviewed: 08:45 Conscious Sedation Pre-Proced Time 08:45 ASA Score 3 For ASA 3 and 4: Consider anesthesia and medical clearance. Also, for patients with a history of failed moderate sedation consider anesthesia. Airway Lungs Heart ASA score ASA 1: a normal healthy patient ASA 2: a patient with a mild systemic disease (mid diabetes, controlled hypertension, obesity ASA 3: a patient with a severe systemic disease that limits activity (angina, COPD, prior Myocardial infarction) ASA 4: a patient with an incapacitating disease that is a constant threat to life (CHF, renal failure) ASA 5: a moribund patient not expected to survive 24 hrs. (ruptured aneurysm) ASA 6: a declared brain- patient whose organs are being harvested. For emergent operations, add the letter E after the classification Mallampati Classification Grade 2 Sedation Plan Analgesia, Amnesia, Plan communicated to team members, Discussed options with patient/fam, Discussed risks with patient/fam The patient is an appropriate candidate to undergo the planned procedure, sedation, and anesthesia. The patient immediately re-assessed prior to indication. ZAY SAMANO MD FACP FAC [facility] Mar 07, 2022 09:27
[2022-03-07] MEDS ORDERED: CLOP75TA69 PO (09:29)
[2022-03-07] MEDS ORDERED: NS IV 1000 ML 1,000 ML IV SCH (09:30)
[2022-03-07] MEDS ORDERED: PATIENT MAY USE OWN MEDS, ALL PO SCH (09:30)
--- NOTE | 2022-03-07 09:30 | Discharge Inst-Cardiology ---
Discharge Inst-Cardiac Discharge Medications New Medications: Clopidogrel Bisulfate (Plavix) 75 Mg Tablet 75 MG PO DAILY for 30 Days, #30 TAB 3 Refills Continued Medications: Acetaminophen (Tylenol Arthritis) 650 Mg Tablet.er 650 MG PO HS PRN for PAIN-MILD (1-4), TAB Acetaminophen (Tylenol Arthritis) 650 Mg Tablet.er 650 MG PO DAILY, TAB Amlodipine Besylate (Amlodipine Besylate) 10 Mg Tablet 10 MG PO DAILY, TAB Aspirin (Aspirin EC) 81 Mg Tablet.dr 81 MG PO DAILY, TAB Atorvastatin Calcium (Atorvastatin Calcium) 10 Mg Tablet 10 MG PO HS, TAB Cetirizine HCl (Cetirizine HCl) 10 Mg Tablet 10 MG PO DAILY PRN for ALLERGIES, TAB Cholecalciferol (Vitamin D3) (Vitamin D3) 50 Mcg (2000 Unit) Tablet 50 MCG PO DAILY, TAB Glucosamine Sulfate 2Kcl (Glucosamine) 1,000 Mg Tablet 1000 MG PO DAILY, TAB L. Rhamnosus GG/Inulin (Culturelle Probiotics Capsule) 10 Billion Cell-200 Mg Capsule 1 EACH PO DAILY, CAP Lisinopril (Lisinopril) 40 Mg Tablet 40 MG PO DAILY, TAB Loratadine (Loratadine) 10 Mg Tablet 10 MG PO DAILY PRN for ALLERGIES, TAB [place] 3 Polyunsat Fatty Acids (Fish Oil 1,000 mg Capsule) 340 Mg-1,000 Mg Cap 1000 MG PO BID, CAP Potassium Citrate (Potassium) 99 Mg Capsule 99 MG PO DAILY, ZAY ANGEL MD [facility] Mar 07, 2022 09:30
--- NOTE | 2022-03-07 09:30 | Discharge Inst-Post CATH ---
Discharge Inst-CATH/EP Post Cardiac Cath/EP D/C Inst Follow Up/Plan F/u with Dr Rodríguez in 3-4 weeks ACTIVITY * Go Home directly and rest. * Limit activity of the leg (or wrist if it was used) for 7 days including aerobics, swimming, jogging, bicycling, etc. * Restrict stair-climbing for 7 days if possible, if not, climb up with your n on-cath leg, then bring together on the same step. * Avoid lifting, pushing, pulling or excessive movement of the affected ex tremity for 7 days. * Customary sexual activity may be resumed after 2 days-use caution not to use a position that strains or causes pain to the affected extremity. * No driving for 24 hours. * NO SMOKING. * Avoid straining for bowel movements for 7 days. * Gentle walking on level ground is allowed. * Returning to work will depend on the type of procedure and the results. Your doctor will discuss this with you. CALL YOUR DOCTOR FOR ANY OF THE FOLLOWING: *If bleeding from the puncture site occurs- Apply gentle pressure to site with clean cloth and call your doctor or EMS. * If a knot or lump forms under the skin, increases in size, or causes pain. * If bruising appears to be worsening or moving further down your leg instead of disappearing. * Temperature above 101 F. CARE OF YOUR GROIN INCISION; * Bruising or purple discoloration of the skin near the puncture site is common. * You may shower only, no bathtub bathing for 5 days. Be careful to avoid slipping as your leg may feel stiff. * If a closure device was used on your femoral artery, please see the attached guide regarding care of the device and your leg. * Leave dressing on FOR 24 hours. CARE OF YOUR WRIST INCISION; * Bruising or purple discoloration of the skin near the puncture site is common. * You may shower. * DO NOT submerge wrist. * Leave dressing on FOR 24 hours. ZAY SAMANO MD [facility] Mar 07, 2022 09:30
[2022-03-07 09:45] VITALS: BP 142/71
[2022-03-07 11:00] VITALS: BP 134/70
[2022-03-07 12:00] VITALS: BP 137/78
--- NOTE | 2022-03-07 12:54 | CARDIAC CATHETERIZATION ---
DATE OF SERVICE: 03/07/2022 CARDIAC CATHETERIZATION REPORT The patient is an 87-year-old lady, who has a history of stenting of the left anterior descending artery by Dr. Rodríguez. She recently underwent a myocardial perfusion imaging study, which indicated anteroapical and anterolateral ischemia. Accordingly, cardiac catheterization was carried out today after having obtained an informed consent. DESCRIPTION OF PROCEDURE: She was brought to the cardiac catheterization laboratory in a fasting state. Right groin was prepared and draped in the usual sterile fashion. Lidocaine 1% was used for local anesthesia. Modified Seldinger technique was used to advance a 5-Marshallese sheath in the right femoral artery, 5-Marshallese JL4 catheter was used for left coronary angiography, 5-Marshallese JR4 catheter was used for right coronary angiography, 5-Marshallese pigtail catheter was used for left heart catheterization and left ventricular angiography. Subsequently, we carried out fractional flow reserve measurement in the right coronary artery and it is described below. Following completion of the procedure, angiography of the right femoral artery was carried out through the sheath and Mynx was used to achieve hemostasis. She tolerated the procedure well. FRACTIONAL FLOW RESERVE MEASUREMENT IN THE RIGHT CORONARY: We exchanged the sheath over a wire for a 6-Marshallese sheath. We gave 4000 units of intravenous heparin. We engaged the right coronary artery with a JR4 guide catheter with side holes. We advanced the pressure wire across the lesion and tip was placed in the distal vessel 140 mcg per kilogram per minute of adenosine was given over 2-1/2 minutes. Fractional flow reserve was measured at 0.94, indicating that the lesion was not hemodynamically significant. The equipment was then removed and angiography of the right femoral artery was carried out through the sheath and Mynx was used to achieve hemostasis. HEMODYNAMICS: Left ventricular end-diastolic pressure following coronary angiography was 12 mmHg. There is no significant pressure gradient on pullback across the aortic valve. Ascending aortic pressure was 119/43 with a mean of 71 mmHg. CORONARY ANGIOGRAPHY: Left main coronary artery is free of significant disease. Left anterior descending, left circumflex arteries have diffuse mild to moderate disease. There is a widely patent stent in the mid left anterior descending artery that does not exhibit any significant in-stent restenosis. Right coronary artery is dominant. It has 50% to 60% mid vessel stenosis and fractional flow reserve across of 0.94, indicating hemodynamic nonsignificance. LEFT VENTRICULOGRAPHY: Left ventricular angiography was carried out in the right anterior oblique projection. Global left ventricular systolic function is normal and no distinct regional wall motion abnormalities seen in this view. CONCLUSIONS: 1. Coronary artery disease, as detailed above. There is a widely patent stent in the mid left anterior descending that is known to be Theresa 2.25 x 18 mm placed in 2019. This does not exhibit any significant in-stent restenosis. Left coronary system is diffuse mild to moderate disease. Right coronary artery has 50% to 60% mid vessel stenosis and fractional flow reserve across the lesion is 0.94. 2. Normal global left ventricular systolic function with ejection fraction approximately 60%. 3. Normal left ventricular end-diastolic pressure. DISCUSSION AND RECOMMENDATIONS: Based on results of the study, it appears appropriate to continue a conservative approach. Risk factor modification has been reviewed. Outpatient followup is advised. Current regimen is being continued. Job ID: [id number] DocumentID: [id number] Dictated Date: 03/07/2022 09:23:02 Utilization Management Nurse Date: 03/07/2022 12:53:38 Dictated By: ZAY SAMANO MD, MA, FACP, FACC,
[2022-03-07 13:00] VITALS: BP 139/71
[2022-03-07 14:42] VITALS: BP 139/71
== END 2022-03-07 14:45 | disposition home or self-care (01) ==
LOC: CATH 08:30 → CSD 09:47 → CATH 14:45
PROVIDERS: ATTEND Internal Medicine Cardiovascular Disease
DX: I25.10 Atherosclerotic heart disease of native coronary artery without angina pectoris (principal); I10 Essential (primary) hypertension; I65.23 Occlusion and stenosis of bilateral carotid arteries; E78.2 Mixed hyperlipidemia; B02.9 Zoster without complications; Z95.5 Presence of coronary angioplasty implant and graft; Z79.82 Long term (current) use of aspirin; Z79.899 Other long term (current) drug therapy
CPT/HCPCS: 80053; 80061; 85027; 85610; 85730; 87081; 93005; 93458; 93571; C1760; C1769; C1887; C1894 ×2; 36415